=== PATIENT | female | born 1995 | race Caucasian/White ===

== ENCOUNTER 2016-09-15 10:56 | Emergency (ER) | payer SELFPAY ==
[2016-09-15] MEDS ORDERED: ONDANSETRON ODT 4 MG TAB PO STA (11:43)
[2016-09-15] MEDS ORDERED: ACETAMINOPHEN TAB 500 MG TAB PO STA (11:43)
--- NOTE | 2016-09-15 11:43 | ED ---
ENT HPI - General Chief complaint: ENT Stated complaint: sore throat, ear pain, nausea Time Seen by Provider: 09/15/16 11:33 Source: patient, RN notes reviewed Mode of arrival: ambulatory Limitations: no limitations - History of Present Illness Initial comments: 21-year-old female presents to the emergency department with a chief complaint of bilateral ear pain and throat pain and nausea. Patient's age 8 sick for the past few days. Patient states that her boyfriend is also L as well as her daughter. She states that she has felt fever chills. Patient states she is recommended a jail and illnesses have been going around. Patient denies any diarrhea with this. Patient has a abdominal pain. Patient denies any neck pain. Patient states that she just feels ill so she thought that she should be seen. Patient states that she was eating and drinking okay. Patient denies any changes in urination. Patient denies cough. Patient denies any recent shortness of breath, chest pain, back pain, abdominal pain, vomiting, numbness or tingling, dysuria or hematuria, constipation or diarrhea, headaches or visual changes, or any other current symptoms. - Related Data Home Medications Medication Instructions Recorded Confirmed No Known Home Medications [No 03/21/16 09/15/16 Known Home Medications] Allergies Allergy/AdvReac Type Severity Reaction Status Date / Time hydromorphone HCl AdvReac Nausea & Verified 09/15/16 12:37 [From Dilaudid] Vomiting Review of Systems ROS Statement: Those systems with pertinent positive or pertinent negative responses have been documented in the HPI. ROS Other: All systems not noted in ROS Statement are negative. Past Medical History Past Medical History: No Reported History History of Any Multi-Drug Resistant Organisms: None Reported Past Surgical History: No Surgical Hx Reported Past Psychological History: No Psychological Hx Reported Smoking Status: Former smoker Past Alcohol Use History: None Reported Past Drug Use History: None Reported General Exam - General Exam Comments Initial Comments: General exam: Alert, active, comfortable in no apparent distress Head: Normocephalic Eyes: Normal reaction of pupils, equal size, normal range of extraocular motion Ears: normal external ear canals, pink tympanic membranes with normal cone of light Nose: clear with pink turbinates Throat: Erythema, no exudates with normal sized tonsils Neck: no masses, no nuchal rigidity Chest: no chest wall deformity Lungs: equal air entry with no crackles or wheeze CVS: S1 and S2 normal with no audible mumurs, regular rhythm Abdomen: no hepatosplenomegaly, normal bowel sounds, no guarding or rigidity Spine: no scoliosis or deformity Skin: no rashes Neurological: No focal deficits, tone is normal in all 4 extremities Limitations: no limitations Course Vital Signs 09/15/16 11:27 Temperature 97.9 F Pulse Rate 91 Respiratory 19 Rate Blood Pressure 116/69 O2 Sat by Pulse 97 Oximetry Medical Decision Making - Medical Decision Making 21-year-old female presents with history of fever or sore throat. This and the patient is negative for strep throat as well as influenza. Patient appears to be suffering from pharyngitis. We discussed with the present for and for her nausea. We discussed Motrin Tylenol for fever control. We discussed return parameters and follow-up. Patient stated that she understood all the questions have been answered. She will be discharged. - Lab Data Lab Results 09/15/16 09/15/16 Range/Units 11:55 11:55 Influenza Type A RNA Not Detected (Not Detectd) Influenza Type B (PCR) Not Detected (Not Detectd) Group A Strep Rapid Negative (Negative) Disposition Clinical Impression: Acute viral pharyngitis Disposition: HOME SELF-CARE Condition: Stable Instructions: Pharyngitis (ED) Additional Instructions: Please use medication as discussed. Please follow up with family doctor if symptoms have not improved over the next two days. Please return to the emergency room if your symptoms increase or worsen or for any other concerns. Referrals: Silvia Bhat III, MD [Primary Care Provider] - 1-2 days Time of Disposition: 13:08
[2016-09-15 13:18] VITALS: BP 121/72; PULSE 79; RESP 16; TEMP 98
== END 2016-09-15 13:17 | disposition home or self-care (01) ==
LOC: EC 10:56
DX: J02.8 Acute pharyngitis due to other specified organisms (principal); R11.0 Nausea; Z87.891 Personal history of nicotine dependence
CPT/HCPCS: 87081; 87430; 87502; 99283

== ENCOUNTER 2016-09-16 05:11 | Emergency (ER) | payer SELFPAY ==
[2016-09-16 05:30] VITALS: BP 110/55; PULSE 99; RESP 20; TEMP 100.8
[2016-09-16] MEDS ORDERED: ONDANSETRON ODT 4 MG TAB PO STA (05:42)
--- NOTE | 2016-09-16 06:14 | ED ---
Nausea/Vomiting/Diarrhea HPI - General Chief complaint: Nausea/Vomiting/Diarrhea Stated complaint: NVD Time Seen by Provider: 09/16/16 05:33 Source: patient, family, RN notes reviewed, old records reviewed Mode of arrival: ambulatory Limitations: no limitations - History of Present Illness Initial comments: This is a 21-year-old female who was seen earlier yesterday and diagnosed with viral infection is back today with complaints of nausea no vomiting however she did have a sore throat and fever everything apparently came back negative she is complaining nausea she was given Zofran when she was in the hospital earlier was not sent home with a prescription she has no other complaints at this time the lightheadedness and dizziness. MD complaint: nausea, vomiting, diarrhea - Related Data Previous Rx's Medication Instructions Recorded Ondansetron Odt [Zofran Odt] 4 mg PO Q8HR PRN #10 tab 09/16/16 Allergies Allergy/AdvReac Type Severity Reaction Status Date / Time hydromorphone HCl AdvReac Nausea & Verified 09/16/16 05:29 [From Dilaudid] Vomiting Review of Systems ROS Statement: Those systems with pertinent positive or pertinent negative responses have been documented in the HPI. ROS Other: All systems not noted in ROS Statement are negative. Past Medical History Past Medical History: No Reported History History of Any Multi-Drug Resistant Organisms: None Reported Past Surgical History: No Surgical Hx Reported Past Psychological History: No Psychological Hx Reported Smoking Status: Former smoker Past Alcohol Use History: None Reported Past Drug Use History: None Reported General Exam - General Exam Comments Initial Comments: This is a well-developed well-nourished awake alert oriented [id number] Limitations: no limitations General appearance: alert, in no apparent distress Head exam: Present: atraumatic, normocephalic, normal inspection Eye exam: Present: normal appearance, PERRL, EOMI. Absent: scleral icterus, conjunctival injection, periorbital swelling ENT exam: Present: mucous membranes moist, other Neck exam: Present: normal inspection. Absent: tenderness, meningismus, lymphadenopathy Respiratory exam: Present: normal lung sounds bilaterally. Absent: respiratory distress, wheezes, rales, rhonchi, stridor Cardiovascular Exam: Present: regular rate, normal rhythm, normal heart sounds. Absent: systolic murmur, diastolic murmur, rubs, gallop, clicks GI/Abdominal exam: Present: soft, normal bowel sounds. Absent: distended, tenderness, guarding, rebound, rigid Extremities exam: Present: normal inspection, full ROM, normal capillary refill. Absent: tenderness, pedal edema, joint swelling, calf tenderness Back exam: Present: normal inspection Neurological exam: Present: alert, oriented X3, CN II-XII intact Psychiatric exam: Present: normal affect, normal mood Skin exam: Present: warm, dry, intact, normal color. Absent: rash Course Vital Signs 09/16/16 05:27 Temperature 100.8 F H Pulse Rate 99 Respiratory 20 Rate Blood Pressure 110/55 O2 Sat by Pulse 97 Oximetry Medical Decision Making - Medical Decision Making Hemoccult there but also think really patient is so much improved after Zofran. She will be discharged home with a prescription for this Disposition Clinical Impression: Viral syndrome, Nausea, Febrile illness Disposition: HOME SELF-CARE Condition: Good Instructions: Acute Nausea and Vomiting (ED), Cold Symptoms (ED), Viral Syndrome (ED) Prescriptions: Ondansetron Odt [Zofran Odt] 4 mg PO Q8HR PRN #10 tab PRN Reason: Nausea
== END 2016-09-16 06:35 | disposition home or self-care (01) ==
LOC: EC 05:11
DX: B34.9 Viral infection, unspecified (principal); Z87.891 Personal history of nicotine dependence; Z88.5 Allergy status to narcotic agent
CPT/HCPCS: 99283

== ENCOUNTER 2018-07-21 10:36 | Emergency (ER) | payer OTHER ==
[2018-07-21 10:42] VITALS: TEMP 98.7
[2018-07-21] MEDS ORDERED: IPRATROPIUM-ALBUTEROL 3 ML NEB INHALATION STA (11:12)
--- NOTE | 2018-07-21 11:39 | XR ---
EXAMINATION TYPE: XR chest 2V DATE OF EXAM: 07/21/2018 COMPARISON: Chest x-ray October 15, 2011. HISTORY: Cough and congestion for one week. TECHNIQUE: Frontal and lateral views of the chest are obtained. FINDINGS: There is no focal air space opacity, pleural effusion, or pneumothorax seen. The cardiac silhouette size is within normal limits. The osseous structures are intact. IMPRESSION: No suspicious acute pulmonary process.
--- NOTE | 2018-07-21 12:05 | ED ---
URI HPI - General Chief Complaint: Upper Respiratory Infection Stated Complaint: Cough/nausea Time Seen by Provider: 07/21/18 10:59 Source: patient, RN notes reviewed Mode of arrival: ambulatory Limitations: no limitations - History of Present Illness Initial Comments: 23-year-old female presents emergency Department chief complaint of cough congestion times one week. Patient states she has noticed wheezing and productive cough. She states it initially just started with a slight dry cough and nasal congestion. Patient states that she's had some [id number] medications no relief. Patient is a daily smoker no history of asthma or COPD. Patient reports no fever, chills, night sweats. Denies ear pain or sore throat. - Related Data Previous Rx's Medication Instructions Recorded Albuterol Sulfate [Proair Hfa] 1 - 2 puff INHALATION Q4HR PRN #1 07/21/18 inhaler Azithromycin [Zithromax Z-pack] 0 mg PO DIRECTED #1 pack 07/21/18 predniSONE 50 mg PO DAILY #5 tab 07/21/18 Allergies Allergy/AdvReac Type Severity Reaction Status Date / Time hydromorphone HCl AdvReac Nausea & Verified 07/21/18 11:04 [From Dilaudid] Vomiting Review of Systems ROS Statement: Those systems with pertinent positive or pertinent negative responses have been documented in the HPI. ROS Other: All systems not noted in ROS Statement are negative. Past Medical History Past Medical History: No Reported History History of Any Multi-Drug Resistant Organisms: None Reported Past Surgical History: No Surgical Hx Reported Past Psychological History: No Psychological Hx Reported Smoking Status: Current every day smoker Past Alcohol Use History: None Reported Past Drug Use History: None Reported General Exam Limitations: no limitations General appearance: alert, in no apparent distress Head exam: Present: atraumatic, normocephalic, normal inspection Eye exam: Present: normal appearance, PERRL, EOMI. Absent: scleral icterus, conjunctival injection, periorbital swelling ENT exam: Present: normal exam, normal oropharynx, mucous membranes moist, TM's normal bilaterally Neck exam: Present: normal inspection, full ROM. Absent: tenderness, meningismus, lymphadenopathy Respiratory exam: Present: wheezes. Absent: normal lung sounds bilaterally, respiratory distress, rales, rhonchi, stridor Cardiovascular Exam: Present: regular rate, normal rhythm, normal heart sounds. Absent: systolic murmur, diastolic murmur, rubs, gallop, clicks Neurological exam: Present: alert, oriented X3, CN II-XII intact Course Vital Signs 07/21/18 07/21/18 07/21/18 10:40 11:31 11:39 Temperature 98.7 F Pulse Rate 96 92 92 Respiratory 18 Rate Blood Pressure 119/79 O2 Sat by Pulse 97 Oximetry Medical Decision Making - Medical Decision Making 23-year-old female presented for URI symptoms. Chest x-ray was obtained shows no evidence of pneumonia or pneumothorax. Patient was given a DuoNeb treatment which has improved her symptoms. Patient we discharged with azithromycin, prednisone, Proventil inhaler. Return parameters were discussed. We did discuss smoking cessation greater than 3 minutes Disposition Clinical Impression: Acute bronchitis with bronchospasm Disposition: HOME SELF-CARE Condition: Stable Instructions: Upper Respiratory Infection (ED) Additional Instructions: Please return to the Emergency Department if symptoms worsen or any other concerns. Prescriptions: Albuterol Sulfate [Proair Hfa] 1 - 2 puff INHALATION Q4HR PRN #1 inhaler PRN Reason: difficulty in breathing Azithromycin [Zithromax Z-pack] 0 mg PO DIRECTED #1 pack predniSONE 50 mg PO DAILY #5 tab Is patient prescribed a controlled substance at d/c from ED?: No Referrals: Silvia Bhat III, MD [Primary Care Provider] - 1-2 days Time of Disposition: 12:05
[2018-07-21 12:54] VITALS: RESP 22
[2018-07-21 13:02] VITALS: BP 111/73; PULSE 94
== END 2018-07-21 13:02 | disposition home or self-care (01) ==
LOC: EC 10:36
DX: J20.9 Acute bronchitis, unspecified (principal); F17.200 Nicotine dependence, unspecified, uncomplicated; Z88.5 Allergy status to narcotic agent
CPT/HCPCS: 71046; 94640; 99283

== ENCOUNTER 2018-11-17 16:25 | Emergency (ER) | payer OTHER ==
[2018-11-17] MEDS ORDERED: ONDANSETRON ODT 4 MG TAB PO STA (16:57)
[2018-11-17 17:09] LABS: Appearance,Urine Clear (Clear); Bilirubin,Urine Negative (Negative); Blood,Urine Negative (Negative); Color,Urine Yellow; Glucose,Urine (UA) Negative (Negative); Ketones,Urine Negative (Negative); Leukocyte Esterase,Urine Negative (Negative); Nitrite,Urine Negative (Negative); Protein,Urine Negative (Negative); Urobilinogen,Urine <2.0 mg/dL (<2.0)
--- NOTE | 2018-11-17 17:14 | ED ---
General Adult HPI - General Chief complaint: Nausea/Vomiting/Diarrhea Stated complaint: Vomiting Time Seen by Provider: 11/17/18 16:35 Source: patient Limitations: no limitations - History of Present Illness Initial comments: 23-year-old female without any significant past medical history presents to the emergency department for multiple complaints. Patient states she has not been feeling well since yesterday. States she has had body aches with a headache and a cough. Patient states she is coughing up clear sputum. Patient does admit to smoking. Patient also has been vomiting. She has vomited about 5 times in the past day. Patient denies any abdominal pain or diarrhea. Patient has no other complaints at this time including shortness of breath, chest pain, abdominal pain, or visual changes. - Related Data Previous Rx's Medication Instructions Recorded Ondansetron [Zofran ODT] 4 mg PO Q8HR PRN #15 tab 11/17/18 Allergies Allergy/AdvReac Type Severity Reaction Status Date / Time hydromorphone HCl AdvReac Nausea & Verified 11/17/18 16:57 [From Dilaudid] Vomiting Review of Systems ROS Statement: Those systems with pertinent positive or pertinent negative responses have been documented in the HPI. ROS Other: All systems not noted in ROS Statement are negative. Past Medical History Past Medical History: No Reported History History of Any Multi-Drug Resistant Organisms: None Reported Past Surgical History: No Surgical Hx Reported Past Psychological History: No Psychological Hx Reported Smoking Status: Current every day smoker Past Alcohol Use History: None Reported Past Drug Use History: None Reported General Exam Limitations: no limitations General appearance: alert, in no apparent distress Head exam: Present: atraumatic, normocephalic, normal inspection Eye exam: Present: normal appearance, PERRL, EOMI. Absent: scleral icterus, conjunctival injection, periorbital swelling ENT exam: Present: normal exam, normal oropharynx, mucous membranes moist, TM's normal bilaterally, normal external ear exam Neck exam: Present: normal inspection, full ROM. Absent: tenderness, meningismus, lymphadenopathy Respiratory exam: Present: normal lung sounds bilaterally. Absent: respiratory distress, wheezes, rales, rhonchi, stridor Cardiovascular Exam: Present: regular rate, normal rhythm, normal heart sounds. Absent: systolic murmur, diastolic murmur, rubs, gallop, clicks Neurological exam: Present: alert, oriented X3, CN II-XII intact, other (GCS 15) Psychiatric exam: Present: normal affect, normal mood Skin exam: Present: warm, dry, intact, normal color. Absent: rash Course Vital Signs 11/17/18 16:39 Temperature 97.7 F Pulse Rate 81 Respiratory 16 Rate Blood Pressure 103/69 O2 Sat by Pulse 99 Oximetry - Reevaluation(s) Reevaluation #1: 11/17/18 17:13 Discussed greater than 3 minutes of smoking cessation with patient Reevaluation #2: 11/17/18 18:01 On reevaluation patient is complaining of some chest pain when coughing. Denies any SOB. Patient does have notable chest wall tenderness, likely from coughing.However EKG was obtained. EKG Findings - EKG Comments: EKG Findings:: Normal sinus rhythm, ventricular rate 67, DC interval 134, QTC 420, no evidence of ST elevation or depression. Medical Decision Making - Medical Decision Making 23-year-old female without any significant past medical history presents to the emergency department for multiple complaints. Has not been feeling well since yesterday. Has had bodyaches with a cough and a headache. Unsure if she has had fevers but she has felt hot and cold. Patient states she is coughing up clear sputum. Patient is a smoker. She is also been vomiting for the past 24 hours, about 5 times. No abdominal pain or diarrhea. On exam lungs are clear to auscultation bilaterally, no wheezing present. Patient is well appearing. Sitting up answering questions without any difficulty. Does not appear dehydrated, mucous members are moist. Urine is negative, hCG is negative which was ordered due to vomiting. Influenza also negative. Chest x-ray shows no acute process. Vitals are stable. As I was about to discharge patient is also complaining of some chest pain only when coughing, denying any shortness of breath. Therefore I did do an EKG which did not show any acute abnormalities. Pain is reproducible to palpation, likely costochondritis from coughing. At this time symptoms are likely secondary to a viral illness. Patient's daughter was sick the past 5 days. Patient will follow up with primary care in 1-2 days. She'll be given Zofran for nausea as it did help her here and she was able to keep down a glass of juice. She will return here she has any worsening symp toms. - Lab Data Lab Results 11/17/18 11/17/18 11/17/18 Range/Units 16:53 17:00 17:00 Urine Color Yellow Urine Appearance Clear (Clear) Urine pH 7.0 (5.0-8.0) Ur Specific [place] 1.020 (1.001-1.035) Urine Protein Negative (Negative) Urine Glucose (UA) Negative (Negative) Urine Ketones Negative (Negative) Urine Blood Negative (Negative) Urine Nitrite Negative (Negative) Urine Bilirubin Negative (Negative) Urine Urobilinogen <2.0 (<2.0) mg/dL Ur Leukocyte Esterase Negative (Negative) Urine HCG, Qual Not Detected (Not Detectd) Influenza Type A RNA Not Detected (Not Detectd) Influenza Type B (PCR) Not Detected (Not Detectd) Disposition Clinical Impression: Cough Disposition: HOME SELF-CARE Condition: Good Instructions (If sedation given, give patient instructions): Acute Cough (ED) Additional Instructions: Please take Motrin and Tylenol for any pain or fevers. Take Zofran for nausea. Please follow-up with primary care in 1-2 days. Return here to the emergency department if you have any worsening symptoms. Prescriptions: Ondansetron [Zofran ODT] 4 mg PO Q8HR PRN #15 tab PRN Reason: Nausea Is patient prescribed a controlled substance at d/c from ED?: No Referrals: Cory Morris Jr, DO [Primary Care Provider] - 1-2 days Time of Disposition: 18:02
--- NOTE | 2018-11-17 17:51 | XR ---
EXAMINATION: XR chest 2V DATE AND TIME: 11/17/2018 5:17 PM CLINICAL INDICATION: PHH; Pain TECHNIQUE: Departmental protocol COMPARISON: 07/21/2018 FINDINGS: The lungs are clear. The pleural spaces are negative. The cardiac silhouette is not enlarged. The remainder of the mediastinal silhouette is unremarkable. The skeletal structures and soft tissues are negative for acute findings. IMPRESSION: NO ACUTE PROCESS.
[2018-11-17 19:07] VITALS: BP 104/63; PULSE 71; RESP 18; TEMP 98.3
== END 2018-11-17 19:06 | disposition home or self-care (01) ==
LOC: EC 16:25
DX: R05 Cough (principal); R11.10 Vomiting, unspecified; R07.9 Chest pain, unspecified; F17.200 Nicotine dependence, unspecified, uncomplicated; Z88.5 Allergy status to narcotic agent
CPT/HCPCS: 71046; 81003; 81025; 87502; 93005; 99284

== ENCOUNTER 2019-02-26 14:28 | Emergency (ER) | payer OTHER ==
[2019-02-26 14:38] VITALS: BP 95/67; PULSE 86; RESP 18; TEMP 97.9
[2019-02-26] MEDS ORDERED: SODIUM CHLORIDE 0.9% 1,000 ML IV STA ×2 (15:41)
[2019-02-26 15:53] LABS: Basophils % (A) 1 %; Eosinophils # (A) 0.1 k/uL (0-0.7); Eosinophils % (A) 2 %; HCT 40.7 % (34.0-46.0); HGB 13.5 gm/dL (11.4-16.0); Lymphocytes % (A) 25 %; MCH 29.7 pg (25.0-35.0); MCHC 33.3 g/dL (31.0-37.0); MCV 89.3 fL (80.0-100.0); Mean Platelet Volume 7.2; Monocytes # (A) 0.2 k/uL (0-1.0); Monocytes % (A) 6 %; Neutrophils # (A) 2.5 k/uL (1.3-7.7); Neutrophils % (A) 64 %; Platelet Count 218 k/uL (150-450); RBC 4.55 m/uL (3.80-5.40); RDW 12.6 % (11.5-15.5); WBC 3.9 k/uL (3.8-10.6)
[2019-02-26 15:56] LABS: Appearance,Urine Cloudy (Clear); Bilirubin,Urine Negative (Negative); Blood,Urine Moderate (Negative); Color,Urine Yellow; Glucose,Urine (UA) Negative (Negative); Ketones,Urine Negative (Negative); Leukocyte Esterase,Urine Large (Negative); Mucus,Urine Moderate /hpf; Nitrite,Urine Negative (Negative); Protein,Urine 1+ (Negative); RBC,Urine 5 /hpf (0-5); Specific Gravity,Urine 1.019 (1.001-1.035); Squamous Epithelial Cell,Urine 38 /hpf (0-4); WBC,Urine 97 /hpf (0-5)
[2019-02-26 16:02] LABS: ALT <6 U/L (9-52); AST 16 U/L (14-36); African American GFR (CKD) >90 (>60 ml/min/1.73 sqM); Albumin 4.6 g/dL (3.5-5.0); Alkaline Phosphatase 47 U/L (38-126); Amylase 41 U/L (30-110); Anion Gap 10 mmol/L; Blood Urea Nitrogen 10 mg/dL (7-17); Calcium 8.9 mg/dL (8.4-10.2); Carbon Dioxide 25 mmol/L (22-30); Chloride 105 mmol/L (98-107); Glucose 96 mg/dL (74-99); Potassium 3.7 mmol/L (3.5-5.1); Sodium 140 mmol/L (137-145); Total Bilirubin 0.4 mg/dL (0.2-1.3); Total Protein 7.5 g/dL (6.3-8.2)
[2019-02-26] MEDS ORDERED: cefTRIAXone IN SWFI 1,000 MG/10 ML SYRINGE IVP STA (16:18)
--- NOTE | 2019-02-26 16:22 | XR ---
EXAMINATION TYPE: XR chest 2V DATE OF EXAM: 02/26/2019 COMPARISON: NONE HISTORY: Chest pain TECHNIQUE: Frontal and lateral views of the chest are obtained. FINDINGS: There is no focal air space opacity. No evidence for pneumothorax. No pleural effusion. The cardiac silhouette size is within normal limits. The osseous structures are grossly intact. IMPRESSION: 1. No acute cardiopulmonary process.
--- NOTE | 2019-02-26 16:44 | ED ---
Nausea/Vomiting/Diarrhea HPI - General Chief complaint: Nausea/Vomiting/Diarrhea Stated complaint: Tailbone pain, NVD Time Seen by Provider: 02/26/19 14:49 Source: patient, RN notes reviewed, old records reviewed Mode of arrival: ambulatory Limitations: no limitations - History of Present Illness Initial comments: Patient is a 23 year old female with lower back pain, nausea and vomiting for one day. She reports no changes in stools or diarrhea. She states there is no sweliling or fall or trauma to tailbone. - Related Data Home Medications Medication Instructions Recorded Confirmed Acetaminophen [Tylenol] 650 mg PO Q8H PRN 02/26/19 02/26/19 Previous Rx's Medication Instructions Recorded Ibuprofen [Motrin] 600 mg PO Q6HR PRN #20 tab 02/26/19 Nitrofurantoin Monohyd/M-Cryst 100 mg PO Q12HR #10 cap 02/26/19 [Macrobid] Ondansetron [Zofran] 4 mg PO Q8HR PRN #15 tab 02/26/19 Allergies Allergy/AdvReac Type Severity Reaction Status Date / Time hydromorphone HCl AdvReac Nausea & Verified 02/26/19 15:04 [From Dilaudid] Vomiting Review of Systems ROS Statement: Those systems with pertinent positive or pertinent negative responses have been documented in the HPI. ROS Other: All systems not noted in ROS Statement are negative. Past Medical History Past Medical History: No Reported History History of Any Multi-Drug Resistant Organisms: None Reported Past Surgical History: No Surgical Hx Reported Past Psychological History: No Psychological Hx Reported Smoking Status: Current every day smoker Past Alcohol Use History: None Reported Past Drug Use History: None Reported General Exam - General Exam Comments Initial Comments: Well appearing 23year old female, no distress. Limitations: no limitations General appearance: alert, in no apparent distress Head exam: Present: atraumatic, normocephalic, normal inspection Eye exam: Present: normal appearance, PERRL, EOMI. Absent: scleral icterus, conjunctival injection, periorbital swelling ENT exam: Present: normal exam, mucous membranes moist Neck exam: Present: normal inspection. Absent: tenderness, meningismus, lymphadenopathy Respiratory exam: Present: normal lung sounds bilaterally. Absent: respiratory distress, wheezes, rales, rhonchi, stridor Cardiovascular Exam: Present: regular rate, normal rhythm, normal heart sounds. Absent: systolic murmur, diastolic murmur, rubs, gallop, clicks GI/Abdominal exam: Present: soft, normal bowel sounds. Absent: distended, tenderness, guarding, rebound, rigid Extremities exam: Present: normal inspection, full ROM, normal capillary refill, other (tailbone tenderness). Absent: tenderness, pedal edema, joint swelling, calf tenderness Neurological exam: Present: alert, oriented X3, CN II-XII intact Psychiatric exam: Present: normal affect, normal mood Skin exam: Present: warm, dry, intact, normal color. Absent: rash Course Vital Signs 02/26/19 14:35 Temperature 97.9 F Pulse Rate 86 Respiratory 18 Rate Blood Pressure 95/67 O2 Sat by Pulse 97 Oximetry Medical Decision Making - Medical Decision Making Patient is a 23 year old female with nausea, lower back pain. Labs show patient has UTI, started on antibiotics. CXR is normal. Patients CBC and CMP are normal. Discused close PCP follow up. - Lab Data Result diagrams: 02/26/19 15:38 02/26/19 15:38 Lab Results 02/26/19 02/26/19 02/26/19 Range/Units 15:38 15:38 15:38 WBC 3.9 (3.8-10.6) k/uL RBC 4.55 (3.80-5.40) m/uL Hgb 13.5 (11.4-16.0) gm/dL Hct 40.7 (34.0-46.0) % MCV 89.3 (80.0-100.0) fL MCH 29.7 (25.0-35.0) pg MCHC 33.3 (31.0-37.0) g/dL RDW 12.6 (11.5-15.5) % Plt Count 218 (150-450) k/uL Neutrophils % 64 % Lymphocytes % 25 % Monocytes % 6 % Eosinophils % 2 % Basophils % 1 % Neutrophils # 2.5 (1.3-7.7) k/uL Lymphocytes # 1.0 (1.0-4.8) k/uL Monocytes # 0.2 (0-1.0) k/uL Eosinophils # 0.1 (0-0.7) k/uL Basophils # 0.0 (0-0.2) k/uL Sodium 140 (137-145) mmol/L Potassium 3.7 (3.5-5.1) mmol/L Chloride 105 (98-107) mmol/L Carbon Dioxide 25 (22-30) mmol/L Anion Gap 10 mmol/L BUN 10 (7-17) mg/dL Creatinine 0.55 (0.52-1.04) mg/dL Est GFR (CKD-EPI)AfAm >90 (>60 ml/min/1.73 sqM) Est GFR (CKD-EPI)NonAf >90 (>60 ml/min/1.73 sqM) Glucose 96 (74-99) mg/dL Calcium 8.9 (8.4-10.2) mg/dL Total Bilirubin 0.4 (0.2-1.3) mg/dL AST 16 (14-36) U/L ALT <6 L (9-52) U/L Alkaline Phosphatase 47 (38-126) U/L Total Protein 7.5 (6.3-8.2) g/dL Albumin 4.6 (3.5-5.0) g/dL Amylase 41 (30-110) U/L Lipase 60 (23-300) U/L Urine Color Yellow Urine Appearance Cloudy H (Clear) Urine pH 6.0 (5.0-8.0) Ur Specific [place] 1.019 (1.001-1.035) Urine Protein 1+ H (Negative) Urine Glucose (UA) Negative (Negative) Urine Ketones Negative (Negative) Urine Blood Moderate H (Negative) Urine Nitrite Negative (Negative) Urine Bilirubin Negative (Negative) Urine Urobilinogen 3.0 (<2.0) mg/dL Ur Leukocyte Esterase Large H (Negative) Urine RBC 5 (0-5) /hpf Urine WBC 97 H (0-5) /hpf Ur Squamous Epith Cells 38 H (0-4) /hpf Urine Mucus Moderate H (None) /hpf Urine HCG, Qual (Not Detectd) 02/26/19 Range/Units 15:38 WBC (3.8-10.6) k/uL RBC (3.80-5.40) m/uL Hgb (11.4-16.0) gm/dL Hct (34.0-46.0) % MCV (80.0-100.0) fL MCH (25.0-35.0) pg MCHC (31.0-37.0) g/dL RDW (11.5-15.5) % Plt Count (150-450) k/uL Neutrophils % % Lymphocytes % % Monocytes % % Eosinophils % % Basophils % % Neutrophils # (1.3-7.7) k/uL Lymphocytes # (1.0-4.8) k/uL Monocytes # (0-1.0) k/uL Eosinophils # (0-0.7) k/uL Basophils # (0-0.2) k/uL Sodium (137-145) mmol/L Potassium (3.5-5.1) mmol/L Chloride (98-107) mmol/L Carbon Dioxide (22-30) mmol/L Anion Gap mmol/L BUN (7-17) mg/dL Creatinine (0.52-1.04) mg/dL Est GFR (CKD-EPI)AfAm (>60 ml/min/1.73 sqM) Est GFR (CKD-EPI)NonAf (>60 ml/min/1.73 sqM) Glucose (74-99) mg/dL Calcium (8.4-10.2) mg/dL Total Bilirubin (0.2-1.3) mg/dL AST (14-36) U/L ALT (9-52) U/L Alkaline Phosphatase (38-126) U/L Total Protein (6.3-8.2) g/dL Albumin (3.5-5.0) g/dL Amylase (30-110) U/L Lipase (23-300) U/L Urine Color Urine Appearance (Clear) Urine pH (5.0-8.0) Ur Specific [place] (1.001-1.035) Urine Protein (Negative) Urine Glucose (UA) (Negative) Urine Ketones (Negative) Urine Blood (Negative) Urine Nitrite (Negative) Urine Bilirubin (Negative) Urine Urobilinogen (<2.0) mg/dL Ur Leukocyte Esterase (Negative) Urine RBC (0-5) /hpf Urine WBC (0-5) /hpf Ur Squamous Epith Cells (0-4) /hpf Urine Mucus (None) /hpf Urine HCG, Qual Not Detected (Not Detectd) Disposition Clinical Impression: UTI (urinary tract infection) Disposition: HOME SELF-CARE Condition: Good Instructions (If sedation given, give patient instructions): Urinary Tract Infection in Women (ED) Additional Instructions: Patient advised to follow up with PCP. Please use medication as discussed. Please follow up with family doctor if symptoms have not improved over the next two days. Please return to the emergency room if your symptoms increase or worsen or for any other concerns. Prescriptions: Nitrofurantoin Monohyd/M-Cryst [Macrobid] 100 mg PO Q12HR #10 cap Ibuprofen [Motrin] 600 mg PO Q6HR PRN #20 tab PRN Reason: Pain Ondansetron [Zofran] 4 mg PO Q8HR PRN #15 tab PRN Reason: Nausea Is patient prescribed a controlled substance at d/c from ED?: No Referrals: Cory Morris Jr, [Primary Care Provider] - 1-2 days Time of Disposition: 16:41
== END 2019-02-26 17:09 | disposition home or self-care (01) ==
LOC: EC 14:28
DX: N39.0 Urinary tract infection, site not specified (principal); M54.5 Low back pain; R11.2 Nausea with vomiting, unspecified; F17.200 Nicotine dependence, unspecified, uncomplicated; Z88.5 Allergy status to narcotic agent
CPT/HCPCS: 36415; 80053; 82150; 83690; 85025; 81001; 81025; 71046; 99284; 96374; 96361; J0696

== ENCOUNTER 2019-03-08 17:01 | Emergency (ER) | payer OTHER ==
[2019-03-08 17:23] VITALS: BP 103/68; PULSE 61; RESP 18; TEMP 98.2
[2019-03-08] MEDS ORDERED: KETOROLAC 30 MG/ML 1 ML VIAL IM STA (17:53)
--- NOTE | 2019-03-08 19:12 | XR ---
EXAMINATION TYPE: XR sacrum coccyx DATE OF EXAM: 03/08/2019 COMPARISON: NONE HISTORY: Pain TECHNIQUE: 3 views FINDINGS: Sacrum and coccyx segments have normal alignment. Sacroiliac joints appear normal. There is no sign of a fracture. IMPRESSION: Normal sacrum and coccyx exam.
[2019-03-08] MEDS ORDERED: LIDOCAINE 5% PATCH TOPICAL STA (19:22)
--- NOTE | 2019-03-08 19:22 | ED ---
Back Pain HPI - General Chief Complaint: Back Pain/Injury Stated Complaint: tailbone pain/swelling Time Seen by Provider: 03/08/19 17:36 Source: patient Limitations: no limitations - History of Present Illness Initial Comments: Patient is a 23-year-old female presenting to emergency Department with pain in the tailbone. Patient reports the pain started approximately 2 weeks ago after which she went to emergency department at [facility] and was discharged with pain control. Patient reports the pain is located near the tailbone and does not radiate anywhere. Patient denies any low back pain. Patient reports the pain does not radiate anywhere and denies any numbness or tingling. Patient denies any bowel symptoms, hematochezia, melena. Patient reports the pain is exacerbated when sitting and alleviated whenever pressure is taken off of it. Patient denies any trauma to the area. Patient denies a history of pilonidal cyst. - Related Data Home Medications Medication Instructions Recorded Confirmed Acetaminophen [Tylenol] 650 mg PO Q8H PRN 02/26/19 02/26/19 Previous Rx's Medication Instructions Recorded Ibuprofen [Motrin] 600 mg PO Q6HR PRN #20 tab 02/26/19 Nitrofurantoin Monohyd/M-Cryst 100 mg PO Q12HR #10 cap 02/26/19 [Macrobid] Ondansetron [Zofran] 4 mg PO Q8HR PRN #15 tab 02/26/19 Allergies Allergy/AdvReac Type Severity Reaction Status Date / Time hydromorphone HCl AdvReac Nausea & Verified 02/26/19 15:04 [From Dilaudid] Vomiting Review of Systems ROS Statement: Those systems with pertinent positive or pertinent negative responses have been documented in the HPI. ROS Other: All systems not noted in ROS Statement are negative. Past Medical History Past Medical History: No Reported History History of Any Multi-Drug Resistant Organisms: None Reported Past Surgical History: No Surgical Hx Reported Past Psychological History: No Psychological Hx Reported Smoking Status: Current every day smoker Past Alcohol Use History: None Reported Past Drug Use History: None Reported General Exam - General Exam Comments Initial Comments: General: Well-developed well-nourished distress HEENT: Normocephalic/atraumatic, PERLL, pharynx erythema, swallowing well, EAC no erythema, no exudates, TM clear, no cervical lymph nodes Neck: Supple, nontender, trachea midline Chest/Lungs: Normal respirations, no signs of respiratory distress clear to auscultation bilaterally no wheezes, rales, rhonchi Cardiac: Regular rate and rhythm, normal S1-S2, no murmurs rubs or gallops Abdomen/GI: Soft nontender, bowel sounds equal or quadrant x4, no guarding, no rebound no CVA tenderness Back: Coccygeal tenderness on palpation, no lumbosacral tenderness, no vertebral tenderness, no paraspinal tenderness, no pilonidal cyst noted, normal inspection of the coccygeal region Musculoskeletal: Nontender, full range of motion, no edema, strength equal bilaterally Skin: Warmth, no rashes or lesions, no cyanosis or diaphoresis Neurologic: AAO x 3, CN 2-12 intact, Psychiatric: Mood and affect normal, judgment normal Limitations: no limitations Course Vital Signs 03/08/19 03/08/19 17:21 19:31 Temperature 98.2 F 98.2 F Pulse Rate 61 61 Respiratory 18 18 Rate Blood Pressure 103/68 103/68 O2 Sat by Pulse 99 99 Oximetry Medical Decision Making - Medical Decision Making Patient is a 23-year-old female presenting to emergency Department with pain at the tailbone. X-ray of the sacrum and coccyx is unremarkable. Patient advised to alternate between Tylenol and ibuprofen for pain control. Patient advised to use a donut cushion to help alleviate the pain. Patient given Toradol for pain control and a Lidoderm patch. Patient advised to follow-up with orthopedics for further management. Strict return parameters were thoroughly discussed the patient was understanding and agreeable. Case discussed with physician. Disposition Clinical Impression: Coccygeal pain Disposition: HOME SELF-CARE Condition: Stable Instructions (If sedation given, give patient instructions): Acute Low Back Pain (ED) Additional Instructions: Please follow with orthopedics. Please return to emergency department if symptoms worsen. Is patient prescribed a controlled substance at d/c from ED?: No Referrals: Cory Morris Jr, DO [Primary Care Provider] - 1-2 days Santosh Moran DO [Doctor of Osteopathic Medicine] - 1-2 days Time of Disposition: 19:22
== END 2019-03-08 19:41 | disposition home or self-care (01) ==
LOC: EC 17:01
DX: M53.3 Sacrococcygeal disorders, not elsewhere classified (principal); R22.2 Localized swelling, mass and lump, trunk; F17.200 Nicotine dependence, unspecified, uncomplicated; Z88.5 Allergy status to narcotic agent
CPT/HCPCS: 72220; 99283; 96372; J1885

== ENCOUNTER 2020-02-29 17:50 | Emergency (ER) | payer OTHER ==
[2020-02-29 18:32] LABS: Basophils % (A) 1 %; Eosinophils # (A) 0.1 k/uL (0-0.7); Eosinophils % (A) 2 %; HCT 37.4 % (34.0-46.0); Lymphocytes # (A) 1.6 k/uL (1.0-4.8); Lymphocytes % (A) 27 %; MCH 31.7 pg (25.0-35.0); MCHC 34.8 g/dL (31.0-37.0); MCV 91.2 fL (80.0-100.0); Mean Platelet Volume 8.7; Monocytes # (A) 0.3 k/uL (0-1.0); Monocytes % (A) 5 %; Neutrophils # (A) 3.8 k/uL (1.3-7.7); Neutrophils % (A) 63 %; Platelet Count 214 k/uL (150-450); RDW 12.3 % (11.5-15.5)
[2020-02-29 18:40] LABS: ALT 8 U/L (4-34); AST 19 U/L (14-36); African American GFR (CKD) >90 (>60 ml/min/1.73 sqM); Albumin 4.6 g/dL (3.5-5.0); Alkaline Phosphatase 47 U/L (38-126); Anion Gap 8 mmol/L; Appearance,Urine Clear (Clear); Bilirubin,Urine Negative (Negative); Blood Urea Nitrogen 13 mg/dL (7-17); Blood,Urine Negative (Negative); Calcium 9.1 mg/dL (8.4-10.2); Carbon Dioxide 24 mmol/L (22-30); Chloride 105 mmol/L (98-107); Color,Urine Light Yellow; Glucose 95 mg/dL (74-99); Glucose,Urine (UA) Negative (Negative); Ketones,Urine Negative (Negative); Leukocyte Esterase,Urine Negative (Negative); Nitrite,Urine Negative (Negative); Non-African American GFR(CKD) >90 (>60 ml/min/1.73 sqM); PH, Urine 6.5 (5.0-8.0); Protein,Urine Negative (Negative); Sodium 137 mmol/L (137-145); Specific Gravity,Urine 1.016 (1.001-1.035); Total Bilirubin 0.2 mg/dL (0.2-1.3); Total Protein 7.4 g/dL (6.3-8.2); Urobilinogen,Urine <2.0 mg/dL (<2.0)
--- NOTE | 2020-02-29 18:50 | ED ---
Female Urogenital HPI - General Chief complaint: Vaginal Bleeding Stated complaint: early preg/vag bleeding Time Seen by Provider: 02/29/20 17:55 Source: patient Mode of arrival: ambulatory Limitations: no limitations - History of Present Illness Initial comments: Patient is a 24-year-old female was sent to the emergency department with reported vaginal bleeding. Patient states that she took 3 test on Friday all which were positive. Today she began having vaginal bleeding approximately one hour prior to hospital arrival. States that she is having mild cramping. She did take a test at home and it was negative for . She denies heavy vaginal bleeding. No discharge. Denies dysuria, hematuria or voiding. No melenic stools or hematochezia. Denies lightheadedness or dizziness. Patient has 1 previous , 5 years ago. States she had no issues with this pertinency. No history of miscarriages. No other alleviating, precipitating or modifying factors - Related Data Home Medications Medication Instructions Recorded Confirmed No Known Home Medications 02/29/20 02/29/20 Allergies Allergy/AdvReac Type Severity Reaction Status Date / Time hydromorphone HCl AdvReac Nausea & Verified 02/29/20 18:50 [From Dilaudid] Vomiting Review of Systems ROS Statement: Those systems with pertinent positive or pertinent negative responses have been documented in the HPI. ROS Other: All systems not noted in ROS Statement are negative. Past Medical History Past Medical History: No Reported History History of Any Multi-Drug Resistant Organisms: None Reported Past Surgical History: No Surgical Hx Reported Past Psychological History: No Psychological Hx Reported Smoking Status: Former smoker Past Alcohol Use History: None Reported Past Drug Use History: None Reported General Exam Limitations: no limitations General appearance: alert, in no apparent distress Head exam: Present: atraumatic, normocephalic, normal inspection Eye exam: Present: normal appearance, PERRL, EOMI. Absent: scleral icterus, conjunctival injection, periorbital swelling ENT exam: Present: normal exam, mucous membranes moist Neck exam: Present: normal inspection. Absent: tenderness, meningismus, lymphadenopathy Respiratory exam: Present: normal lung sounds bilaterally. Absent: respiratory distress, wheezes, rales, rhonchi, stridor Cardiovascular Exam: Present: regular rate, normal rhythm, normal heart sounds. Absent: systolic murmur, diastolic murmur, rubs, gallop, clicks GI/Abdominal exam: Present: soft, normal bowel sounds. Absent: distended, tenderness, guarding, rebound, rigid Extremities exam: Present: normal inspection, full ROM, normal capillary refill. Absent: tenderness, pedal edema, joint swelling, calf tenderness Back exam: Present: normal inspection Neurological exam: Present: alert, oriented X3, CN II-XII intact Psychiatric exam: Present: normal affect, normal mood Skin exam: Present: warm, dry, intact, normal color. Absent: rash Course Vital Signs 02/29/20 02/29/20 17:53 19:20 Temperature 98.3 F 97.8 F Pulse Rate 73 68 Respiratory 18 16 Rate Blood Pressure 120/79 105/70 O2 Sat by Pulse 99 98 Oximetry Medical Decision Making - Medical Decision Making Upon arrival the patient's vitals are stable. Laboratory studies are conducted which demonstrate a hemoglobin of 13. Urinalysis is negative. HCG is less than 2.4. I discussed the results with the patient. I informed the patient that there is no evidence of at this time. She'll be discharged home and needs to follow-up with her primary care physician. Return to the emergency room for any new or worsening symptoms per patient was in agreement with the treatment plan she is discharged home in stable condition - Lab Data Result diagrams: 02/29/20 18:22 02/29/20 18:22 Lab Results 02/29/20 02/29/20 02/29/20 Range/Units 18:22 18:22 18:22 WBC 6.0 (3.8-10.6) k/uL RBC 4.10 (3.80-5.40) m/uL Hgb 13.0 (11.4-16.0) gm/dL Hct 37.4 (34.0-46.0) % MCV 91.2 (80.0-100.0) fL MCH 31.7 (25.0-35.0) pg MCHC 34.8 (31.0-37.0) g/dL RDW 12.3 (11.5-15.5) % Plt Count 214 (150-450) k/uL Neutrophils % 63 % Lymphocytes % 27 % Monocytes % 5 % Eosinophils % 2 % Basophils % 1 % Neutrophils # 3.8 (1.3-7.7) k/uL Lymphocytes # 1.6 (1.0-4.8) k/uL Monocytes # 0.3 (0-1.0) k/uL Eosinophils # 0.1 (0-0.7) k/uL Basophils # 0.0 (0-0.2) k/uL Sodium 137 (137-145) mmol/L Potassium 4.0 (3.5-5.1) mmol/L Chloride 105 (98-107) mmol/L Carbon Dioxide 24 (22-30) mmol/L Anion Gap 8 mmol/L BUN 13 (7-17) mg/dL Creatinine 0.59 (0.52-1.04) mg/dL Est GFR (CKD-EPI)AfAm >90 (>60 ml/min/1.73 sqM) Est GFR (CKD-EPI)NonAf >90 (>60 ml/min/1.73 sqM) Glucose 95 (74-99) mg/dL Calcium 9.1 (8.4-10.2) mg/dL Total Bilirubin 0.2 (0.2-1.3) mg/dL AST 19 (14-36) U/L ALT 8 (4-34) U/L Alkaline Phosphatase 47 (38-126) U/L Total Protein 7.4 (6.3-8.2) g/dL Albumin 4.6 (3.5-5.0) g/dL HCG, Quant <2.4 mIU/mL Urine Color Urine Appearance (Clear) Urine pH (5.0-8.0) Ur Specific [place] (1.001-1.035) Urine Protein (Negative) Urine Glucose (UA) (Negative) Urine Ketones (Negative) Urine Blood (Negative) Urine Nitrite (Negative) Urine Bilirubin (Negative) Urine Urobilinogen (<2.0) mg/dL Ur Leukocyte Esterase (Negative) Blood Type O Positive Blood Type Recheck O Pos Bld Type Recheck Status No 02/29/20 Range/Units 18:22 WBC (3.8-10.6) k/uL RBC (3.80-5.40) m/uL Hgb (11.4-16.0) gm/dL Hct (34.0-46.0) % MCV (80.0-100.0) fL MCH (25.0-35.0) pg MCHC (31.0-37.0) g/dL RDW (11.5-15.5) % Plt Count (150-450) k/uL Neutrophils % % Lymphocytes % % Monocytes % % Eosinophils % % Basophils % % Neutrophils # (1.3-7.7) k/uL Lymphocytes # (1.0-4.8) k/uL Monocytes # (0-1.0) k/uL Eosinophils # (0-0.7) k/uL Basophils # (0-0.2) k/uL Sodium (137-145) mmol/L Potassium (3.5-5.1) mmol/L Chloride (98-107) mmol/L Carbon Dioxide (22-30) mmol/L Anion Gap mmol/L BUN (7-17) mg/dL Creatinine (0.52-1.04) mg/dL Est GFR (CKD-EPI)AfAm (>60 ml/min/1.73 sqM) Est GFR (CKD-EPI)NonAf (>60 ml/min/1.73 sqM) Glucose (74-99) mg/dL Calcium (8.4-10.2) mg/dL Total Bilirubin (0.2-1.3) mg/dL AST (14-36) U/L ALT (4-34) U/L Alkaline Phosphatase (38-126) U/L Total Protein (6.3-8.2) g/dL Albumin (3.5-5.0) g/dL HCG, Quant mIU/mL Urine Color Light Yellow Urine Appearance Clear (Clear) Urine pH 6.5 (5.0-8.0) Ur Specific [place] 1.016 (1.001-1.035) Urine Protein Negative (Negative) Urine Glucose (UA) Negative (Negative) Urine Ketones Negative (Negative) Urine Blood Negative (Negative) Urine Nitrite Negative (Negative) Urine Bilirubin Negative (Negative) Urine Urobilinogen <2.0 (<2.0) mg/dL Ur Leukocyte Esterase Negative (Negative) Blood Type Blood Type Recheck Bld Type Recheck Status Disposition Clinical Impression: Dysfunctional uterine bleeding Disposition: HOME SELF-CARE Condition: Stable Instructions (If sedation given, give patient instructions): Dysmenorrhea (ED) Additional Instructions: Please follow up with the primary care doctor. Return to the emergency room for any new or worsening symptoms Is patient prescribed a controlled substance at d/c from ED?: No Referrals: Cory Morris Jr, [Primary Care Provider] - 1-2 days Time of Disposition: 19:09
[2020-02-29 18:56] LABS: HCG,Quantitative Serum <2.4 mIU/mL
[2020-02-29 19:21] VITALS: BP 105/70; PULSE 68; RESP 16; TEMP 97.8
== END 2020-02-29 19:20 | disposition home or self-care (01) ==
LOC: EC 17:50
DX: N93.8 Other specified abnormal uterine and vaginal bleeding (principal); Z87.891 Personal history of nicotine dependence; Z88.5 Allergy status to narcotic agent
CPT/HCPCS: 36415; 80053; 81003; 84702; 85025; 86900; 86901; 99284

== ENCOUNTER 2020-04-04 09:02 | Emergency (ER) | payer OTHER ==
[2020-04-04 09:06] VITALS: BP 107/77; PULSE 81; RESP 18; TEMP 98.2
[2020-04-04] MEDS ORDERED: ACET/COD 300 MG/30 MG STARTER PACK 6 TAB BTL PO STA (09:13)
--- NOTE | 2020-04-04 09:14 | ED ---
General Adult HPI - General Chief complaint: Dental/Oral Stated complaint: facial swelling Time Seen by Provider: 04/04/20 09:07 Source: patient, RN notes reviewed Mode of arrival: ambulatory Limitations: no limitations - History of Present Illness Initial comments: 24-year-old female presents to the emergency room for left-sided facial swelling. Patient reports that left-sided upper dental pain started yesterday and then the swelling started today. Patient denies fevers or chills. Patient denies neck pain trismus. Denies any sublingual edema. Patient did try to call her dentist but cannot get in until next week.Patient has no other complaints at this time including shortness of breath, chest pain, abdominal pain, nausea or vomiting, headache, or visual changes. - Related Data Previous Rx's Medication Instructions Recorded Penicillin V Potassium [Pen Vee K] 500 mg PO Q6H 10 Days #40 tablet 04/04/20 Allergies Allergy/AdvReac Type Severity Reaction Status Date / Time hydromorphone HCl AdvReac Nausea & Verified 04/04/20 09:06 [From Dilaudid] Vomiting Review of Systems ROS Statement: Those systems with pertinent positive or pertinent negative responses have been documented in the HPI. ROS Other: All systems not noted in ROS Statement are negative. Past Medical History Past Medical History: No Reported History History of Any Multi-Drug Resistant Organisms: None Reported Past Surgical History: No Surgical Hx Reported Past Psychological History: No Psychological Hx Reported Smoking Status: Former smoker Past Alcohol Use History: None Reported Past Drug Use History: None Reported General Exam Limitations: no limitations General appearance: alert, in no apparent distress Head exam: Present: atraumatic, normocephalic, normal inspection Eye exam: Present: normal appearance, PERRL, EOMI. Absent: scleral icterus, conjunctival injection, periorbital swelling ENT exam: Present: normal exam, mucous membranes moist, TM's normal bilaterally, normal external ear exam. Absent: normal oropharynx (Patient has edema noted to the left axillary area. Patient does not have any abscesses noted of the left upper gumline.), other (No sublingual edema. No trismus.) Neck exam: Present: normal inspection, full ROM. Absent: tenderness, meningismus, lymphadenopathy Respiratory exam: Present: normal lung sounds bilaterally. Absent: respiratory distress, wheezes, rales, rhonchi, stridor Cardiovascular Exam: Present: regular rate, normal rhythm, normal heart sounds. Absent: systolic murmur, diastolic murmur, rubs, gallop, clicks GI/Abdominal exam: Present: soft, normal bowel sounds. Absent: distended, tenderness, guarding, rebound, rigid Neurological exam: Present: alert Course Vital Signs 04/04/20 09:03 Temperature 98.2 F Pulse Rate 81 Respiratory 18 Rate Blood Pressure 107/77 O2 Sat by Pulse 100 Oximetry Medical Decision Making - Medical Decision Making Patient presents for dental pain. She does have associated left-sided facial swelling. No abscess noted from direct visualization or palpation of the gumline. Patient was started on antibiotics. She was given Tylenol 3 for pain. Recommend she alternate this with Motrin and not drive while taking it. Patient will follow up with her doctor in one to 2 days. She'll return for any worsening symptoms. She will attend her dental appointment next week. Disposition Clinical Impression: Pain, dental Disposition: HOME SELF-CARE Condition: Good Instructions (If sedation given, give patient instructions): Toothache (ED) Additional Instructions: Please take antibiotic as directed. Alternate Motrin and Tylenol [address] or operate machinery while taking Tylenol 3. Apply ice to the left side of the face. Try to keep head elevated. Follow-up with your dentist at your appointment next week. Return to the emergency room if you have any worsening symptoms. As discussed, it may take up to 24 hours for antibiotics to start working. Prescriptions: Penicillin V Potassium [Pen Vee K] 500 mg PO Q6H 10 Days #40 tablet Is patient prescribed a controlled substance at d/c from ED?: No Referrals: Cory Morris Jr, DO [Primary Care Provider] - 1-2 days Time of Disposition: 09:13
== END 2020-04-04 09:28 | disposition home or self-care (01) ==
LOC: EC 09:02
DX: K08.89 Other specified disorders of teeth and supporting structures (principal); R22.0 Localized swelling, mass and lump, head; Z88.5 Allergy status to narcotic agent; Z87.891 Personal history of nicotine dependence
CPT/HCPCS: 99283

== ENCOUNTER 2020-04-06 12:11 | Emergency (ER) | payer OTHER ==
[2020-04-06 12:45] VITALS: TEMP 98.5
[2020-04-06] MEDS ORDERED: cefTRIAXone IN SWFI 1,000 MG/10 ML SYRINGE IVP STA (13:10)
[2020-04-06] MEDS ORDERED: HYDROcodone/APAP 5-325MG 1 EACH TAB PO STA (13:11)
[2020-04-06] MEDS ORDERED: SODIUM CHLORIDE 0.9% 1,000 ML IV ONE (13:11)
[2020-04-06 13:56] LABS: Basophils % (A) 0 %; Eosinophils # (A) 0.1 k/uL (0-0.7); Eosinophils % (A) 1 %; HCT 37.7 % (34.0-46.0); HGB 12.8 gm/dL (11.4-16.0); Lymphocytes # (A) 1.5 k/uL (1.0-4.8); Lymphocytes % (A) 15 %; MCH 30.3 pg (25.0-35.0); MCHC 33.9 g/dL (31.0-37.0); MCV 89.5 fL (80.0-100.0); Mean Platelet Volume 8.2; Monocytes # (A) 0.5 k/uL (0-1.0); Monocytes % (A) 5 %; Neutrophils # (A) 7.8 k/uL (1.3-7.7); Neutrophils % (A) 78 %; Platelet Count 222 k/uL (150-450); RBC 4.21 m/uL (3.80-5.40); RDW 12.1 % (11.5-15.5)
[2020-04-06 14:05] LABS: African American GFR (CKD) >90 (>60 ml/min/1.73 sqM); Anion Gap 8 mmol/L; Blood Urea Nitrogen 10 mg/dL (7-17); Calcium 9.2 mg/dL (8.4-10.2); Carbon Dioxide 26 mmol/L (22-30); Chloride 102 mmol/L (98-107); Glucose 90 mg/dL (74-99); Non-African American GFR(CKD) >90 (>60 ml/min/1.73 sqM); Potassium 4.1 mmol/L (3.5-5.1); Sodium 136 mmol/L (137-145)
--- NOTE | 2020-04-06 14:35 | ED ---
ENT HPI - General Chief complaint: Dental/Oral Stated complaint: Facial swelling Time Seen by Provider: 04/06/20 12:57 Source: patient, RN notes reviewed, old records reviewed Mode of arrival: ambulatory Limitations: no limitations - History of Present Illness Initial comments: said 24 rolled female process returns today with left-sided facial swe lling. She was seen for dental abscess 2 days ago. Pt started on PenVK and given pain medication but it has not helped. She reports worsening swelling to lower jaw and complains of trismus. Denies sore throat. - Related Data Home Medications Medication Instructions Recorded Confirmed Acetaminophen-Codeine 300-30mg 1 tab PO TID PRN 04/06/20 04/06/20 [Tylenol w/codeine #3] Previous Rx's Medication Instructions Recorded Penicillin V Potassium [Pen Vee K] 500 mg PO Q6H 10 Days #40 tablet 04/04/20 Clindamycin HCl 300 mg PO Q6H #40 cap 04/06/20 HYDROcodone/APAP 5-325MG [[place] 1 tab PO Q6HR PRN 3 Days #12 tab 04/06/20 5-325] Allergies Allergy/AdvReac Type Severity Reaction Status Date / Time hydromorphone HCl AdvReac Nausea & Verified 04/06/20 13:10 [From Dilaudid] Vomiting Review of Systems ROS Statement: Those systems with pertinent positive or pertinent negative responses have been documented in the HPI. ROS Other: All systems not noted in ROS Statement are negative. Past Medical History Past Medical History: No Reported History History of Any Multi-Drug Resistant Organisms: None Reported Past Surgical History: No Surgical Hx Reported Past Psychological History: No Psychological Hx Reported Smoking Status: Former smoker Past Alcohol Use History: None Reported Past Drug Use History: None Reported General Exam - General Exam Comments Initial Comments: 24 year old female, no distress. Limitations: no limitations General appearance: alert, in no apparent distress Head exam: Present: atraumatic, normocephalic, normal inspection Eye exam: Present: normal appearance, PERRL, EOMI. Absent: scleral icterus, conjunctival injection, periorbital swelling ENT exam: Present: normal exam, mucous membranes moist, other (left sided facial swelling, tenderness over submandibular and parotid area. No palpable intraoral abscess. ) Neck exam: Present: normal inspection. Absent: tenderness, meningismus, lymphadenopathy Respiratory exam: Present: normal lung sounds bilaterally. Absent: respiratory distress, wheezes, rales, rhonchi, stridor Cardiovascular Exam: Present: regular rate, normal rhythm, normal heart sounds. Absent: systolic murmur, diastolic murmur, rubs, gallop, clicks GI/Abdominal exam: Present: soft, normal bowel sounds. Absent: distended, tenderness, guarding, rebound, rigid Extremities exam: Present: normal inspection, full ROM, normal capillary refill. Absent: tenderness, pedal edema, joint swelling, calf tenderness Back exam: Present: normal inspection Neurological exam: Present: alert, oriented X3, CN II-XII intact Psychiatric exam: Present: normal affect, normal mood Course Vital Signs 04/06/20 04/06/20 12:43 16:00 Temperature 98.5 F Pulse Rate 86 82 Respiratory 16 18 Rate Blood Pressure 115/73 118/83 O2 Sat by Pulse 99 100 Oximetry Medical Decision Making - Medical Decision Making She 24 year old female with worseing left facial swelling, and has been on PEnVK for 2 days. She has no intraoral abscess and has some trismus. Pt at this time had CT scan and labs. Labs are unremarkable. CT show no focal drainable abscess but evidence of left sided facial swelling that is non specific. Feels improvement after receiving toradol, norco and rocephin. Pt evaluated by Dr. Sanon, and will start pt on Clindamycin. Discussed strict return parameters in 24 hours if worsening symptoms with new abx. - Lab Data Result diagrams: 04/06/20 13:24 04/06/20 13:24 Lab Results 04/06/20 04/06/20 Range/Units 13:24 13:24 WBC 10.0 (3.8-10.6) k/uL RBC 4.21 (3.80-5.40) m/uL Hgb 12.8 (11.4-16.0) gm/dL Hct 37.7 (34.0-46.0) % MCV 89.5 (80.0-100.0) fL MCH 30.3 (25.0-35.0) pg MCHC 33.9 (31.0-37.0) g/dL RDW 12.1 (11.5-15.5) % Plt Count 222 (150-450) k/uL Neutrophils % 78 % Lymphocytes % 15 % Monocytes % 5 % Eosinophils % 1 % Basophils % 0 % Neutrophils # 7.8 H (1.3-7.7) k/uL Lymphocytes # 1.5 (1.0-4.8) k/uL Monocytes # 0.5 (0-1.0) k/uL Eosinophils # 0.1 (0-0.7) k/uL Basophils # 0.0 (0-0.2) k/uL Sodium 136 L (137-145) mmol/L Potassium 4.1 (3.5-5.1) mmol/L Chloride 102 (98-107) mmol/L Carbon Dioxide 26 (22-30) mmol/L Anion Gap 8 mmol/L BUN 10 (7-17) mg/dL Creatinine 0.50 L (0.52-1.04) mg/dL Est GFR (CKD-EPI)AfAm >90 (>60 ml/min/1.73 sqM) Est GFR (CKD-EPI)NonAf >90 (>60 ml/min/1.73 sqM) Glucose 90 (74-99) mg/dL Calcium 9.2 (8.4-10.2) mg/dL - Radiology Data Radiology results: report reviewed Soft tissue infiltration changes of left mandibular and submandibular region. No well-formed fluid collection or abscess. No definite dental cavity or periodontal abscess. Correlate clinically. Etiology uncertain. Disposition Clinical Impression: Left facial swelling, Facial cellulitis Disposition: HOME SELF-CARE Condition: Good Instructions (If sedation given, give patient instructions): Sialoadenitis (ED) Additional Instructions: Please use medication as discussed. Use throat lozenges to promote salivation. Please follow up with family doctor if symptoms have not improved over the next two days. Please return to the emergency room if your symptoms increase or worsen or for any other concerns. Prescriptions: Clindamycin HCl 300 mg PO Q6H #40 cap HYDROcodone/APAP 5-325MG [[place] 5-325] 1 tab PO Q6HR PRN 3 Days #12 tab PRN Reason: Pain Is patient prescribed a controlled substance at d/c from ED?: Yes If prescribed controlled substance>3 days was MAPS reviewed?: Prescribed <3 Days If opioid is for acute pain is fill amount 7 days or less?: Yes If Rx opioid, was Start Talking consent form obtained?: Yes Referrals: Cory Morris Jr, DO [Primary Care Provider] - 1-2 days Time of Disposition: 14:56
--- NOTE | 2020-04-06 14:37 | CT ---
EXAMINATION TYPE: CT soft tissue neck w con DATE OF EXAM: 04/06/2020 HISTORY: Left cheek swelling and pain. COMPARISON: NONE CT DLP: 219.3 mGycm. Automated Exposure Control for Dose Reduction was Utilized. TECHNIQUE: CT scan of the neck is performed with IV Contrast, patient injected with 100 mL of Isovue 300, axial images are obtained, coronal and sagittal reformatted images are reviewed. FINDINGS: Airway: No gross abnormality seen. Parotid/submandibular glands: No gross abnormality seen. Carotid/Vascular Structures: No suspicious abnormalities seen. Osseous Structures: Scoliotic curvature may be positional. Other: There is [id number] asymmetric soft tissue swelling and fat stranding over the left aleksander ible with some prominent but subcentimeter left submandibular lymph node. There are cavitary fillings involving the molar teeth bilaterally of the maxilla and mandible. No definitive new suspicious luce ncy or cavity identified. No definitive bony destruction seen. No well-formed fluid collection or abs cess. Mild to moderate lobulated mucosal thickening inferior left maxillary sinus and anterior left e thmoid sinuses. IMPRESSION: Soft tissue inflammatory changes left mandibular and submandibular region. No well-formed fluid collection or abscess. No definitive dental cavity or periodontal abscess. Correlate clinicall y. Etiology uncertain.
[2020-04-06] MEDS ORDERED: DEXAMETHASONE SOD PHOSPHATE 10 MG/ML 1 ML VIAL IV STA (14:57)
[2020-04-06] MEDS ORDERED: CLINDAMYCIN 150 MG CAP PO STA (14:58)
[2020-04-06 16:02] VITALS: BP 118/83; PULSE 82; RESP 18
== END 2020-04-06 16:01 | disposition home or self-care (01) ==
LOC: EC 12:11
DX: L03.211 Cellulitis of face (principal); Z87.891 Personal history of nicotine dependence; Z88.8 Allergy status to other drugs, medicaments and biological substances
CPT/HCPCS: 36415; 80048; 85025; 87040; 70491; 99284; 96374; 96375; 96361; J1100; J0696; Q9967

== ENCOUNTER 2020-11-13 23:38 | Emergency (ER) | payer OTHER ==
[2020-11-14 00:37] VITALS: TEMP 98.3
[2020-11-14 01:52] LABS: Basophils # (A) 0.1 k/uL (0-0.2); Basophils % (A) 1 %; Eosinophils # (A) 0.2 k/uL (0-0.7); Eosinophils % (A) 3 %; HCT 39.3 % (34.0-46.0); HGB 13.6 gm/dL (11.4-16.0); Lymphocytes # (A) 2.5 k/uL (1.0-4.8); Lymphocytes % (A) 32 %; MCH 31.3 pg (25.0-35.0); MCHC 34.7 g/dL (31.0-37.0); MCV 90.2 fL (80.0-100.0); Mean Platelet Volume 8.3; Monocytes # (A) 0.4 k/uL (0-1.0); Monocytes % (A) 5 %; Neutrophils # (A) 4.5 k/uL (1.3-7.7); Neutrophils % (A) 58 %; Platelet Count 243 k/uL (150-450); RBC 4.36 m/uL (3.80-5.40); RDW 12.1 % (11.5-15.5); WBC 7.7 k/uL (3.8-10.6)
[2020-11-14 02:12] LABS: ALT 6 U/L (4-34); AST 19 U/L (14-36); African American GFR (CKD) >90 (>60 ml/min/1.73 sqM); Albumin 4.8 g/dL (3.5-5.0); Alkaline Phosphatase 50 U/L (38-126); Amylase 60 U/L (30-110); Anion Gap 10 mmol/L; Blood Urea Nitrogen 12 mg/dL (7-17); Calcium 9.7 mg/dL (8.4-10.2); Carbon Dioxide 26 mmol/L (22-30); Chloride 102 mmol/L (98-107); Glucose 89 mg/dL (74-99); Lipase 136 U/L (23-300); Non-African American GFR(CKD) >90 (>60 ml/min/1.73 sqM); Potassium 4.1 mmol/L (3.5-5.1); Sodium 138 mmol/L (137-145); Total Bilirubin 0.2 mg/dL (0.2-1.3); Total Protein 7.9 g/dL (6.3-8.2)
[2020-11-14 02:27] LABS: Appearance,Urine Clear (Clear); Bilirubin,Urine Negative (Negative); Blood,Urine Negative (Negative); Color,Urine Yellow; Glucose,Urine (UA) Negative (Negative); Ketones,Urine Negative (Negative); Leukocyte Esterase,Urine Negative (Negative); Nitrite,Urine Negative (Negative); Protein,Urine Trace (Negative); Specific Gravity,Urine 1.026 (1.001-1.035); Urobilinogen,Urine <2.0 mg/dL (<2.0)
--- NOTE | 2020-11-14 02:43 | XR ---
EXAM: XR Abdomen, 1 View CLINICAL HISTORY: abdominal pain TECHNIQUE: Frontal view of the abdomen/pelvis. COMPARISON: No relevant prior studies available. FINDINGS: Gastrointestinal tract: Moderate amount of stool in the colon . No dilation. Bones/joints: Unremarkable. IMPRESSION: Moderate amount of stool in the colon
[2020-11-14] MEDS ORDERED: SODIUM CHLORIDE 0.9% 1,000 ML IV STA (04:19)
[2020-11-14] MEDS ORDERED: MORPHINE SULFATE 4 MG/ML SYRINGE IVP STA (04:19)
--- NOTE | 2020-11-14 04:19 | ED ---
Abdominal Pain HPI - General Source: patient Mode of arrival: ambulatory Limitations: no limitations <Zi Sandhu - Last Filed: 11/14/20 07:07> <Daniel Cobb - Last Filed: 11/14/20 09:41> - General Chief Complaint: Abdominal Pain Stated Complaint: Abdominal Pain Time Seen by Provider: 11/14/20 03:47 - Related Data Home Medications Medication Instructions Recorded Confirmed Acetaminophen-Codeine 300-30mg 1 tab PO TID PRN 04/06/20 04/06/20 [Tylenol w/codeine #3] Previous Rx's Medication Instructions Recorded Penicillin V Potassium [Pen Vee K] 500 mg PO Q6H 10 Days #40 tablet 04/04/20 Clindamycin HCl 300 mg PO Q6H #40 cap 04/06/20 HYDROcodone/APAP 5-325MG [[place] 1 tab PO Q6HR PRN 3 Days #12 tab 04/06/20 5-325] HYDROcodone/APAP 5-325MG [[place] 1 tab PO Q6HR PRN 3 Days #12 tab 11/14/20 5-325] Allergies Allergy/AdvReac Type Severity Reaction Status Date / Time hydromorphone HCl AdvReac Nausea & Verified 11/14/20 00:37 [From Dilaudid] Vomiting Review of Systems ROS Other: All systems not noted in ROS Statement are negative. <Zi Sandhu - Last Filed: 11/14/20 07:07> ROS Other: All systems not noted in ROS Statement are negative. <Daniel Cobb - Last Filed: 11/14/20 09:41> ROS Statement: Those systems with pertinent positive or pertinent negative responses have been documented in the HPI. Past Medical History Past Medical History: No Reported History History of Any Multi-Drug Resistant Organisms: None Reported Past Surgical History: No Surgical Hx Reported Past Psychological History: No Psychological Hx Reported Smoking Status: Current every day smoker Past Alcohol Use History: None Reported Past Drug Use History: None Reported <Zi Sandhu - Last Filed: 11/14/20 07:07> General Exam Limitations: no limitations <Zi Sandhu - Last Filed: 11/14/20 07:07> Course Vital Signs 11/14/20 00:34 Temperature 98.3 F Pulse Rate 71 Respiratory 16 Rate Blood Pressure 106/75 O2 Sat by Pulse 99 Oximetry Medical Decision Making - Lab Data Result diagrams: 11/14/20 00:45 11/14/20 00:45 <Zi Sandhu - Last Filed: 11/14/20 07:07> - Lab Data Result diagrams: 11/14/20 00:45 11/14/20 00:45 <Daniel Cobb - Last Filed: 11/14/20 09:41> - Medical Decision Making Patient signed out to me by previous shift physician Dr. Sandhu. Patient is a 25-year-old female she has no significant past medical history. Presents to the emergency department for right lower abdominal pain. Patient had workup initiated by Dr. Morris. CBC, metabolic panel and urinalysis is unremarkable. Patient did have a CT of abdomen and pelvis that shows a large cystic lesions of the left adnexa likely a large ovarian cyst. Patient is not . Plan at sign out was to follow-up with pending transvaginal ultrasound. According to previous shift physician patient's well-appearing without any findings at bedside to suggest ovarian torsion. Patient was evaluated at bedside is stable-appearing she did not appear to be any significant amount of acute distress. Transvaginal ultrasound shows large left ovarian cyst with a smaller complex right ovarian cyst. There does appear to be no evidence to suggest ovarian torsion. Case is discussed with Dr. Nath. Came to the emergency department evaluated patient. Dr. Nath discussed options with patient. 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 Patient given return precautions. Patient given by mouth analgesics prescription patient understands that she has a high predisposition of having ovarian torsion. She states she understands the plan. (Daniel Cobb) - Lab Data Lab Results 11/14/20 11/14/20 11/14/20 Range/Units 00:45 00:45 00:45 WBC 7.7 (3.8-10.6) k/uL RBC 4.36 (3.80-5.40) m/uL Hgb 13.6 (11.4-16.0) gm/dL Hct 39.3 (34.0-46.0) % MCV 90.2 (80.0-100.0) fL MCH 31.3 (25.0-35.0) pg MCHC 34.7 (31.0-37.0) g/dL RDW 12.1 (11.5-15.5) % Plt Count 243 (150-450) k/uL MPV 8.3 Neutrophils % 58 % Lymphocytes % 32 % Monocytes % 5 % Eosinophils % 3 % Basophils % 1 % Neutrophils # 4.5 (1.3-7.7) k/uL Lymphocytes # 2.5 (1.0-4.8) k/uL Monocytes # 0.4 (0-1.0) k/uL Eosinophils # 0.2 (0-0.7) k/uL Basophils # 0.1 (0-0.2) k/uL Sodium 138 (137-145) mmol/L Potassium 4.1 (3.5-5.1) mmol/L Chloride 102 (98-107) mmol/L Carbon Dioxide 26 (22-30) mmol/L Anion Gap 10 mmol/L BUN 12 (7-17) mg/dL Creatinine 0.67 (0.52-1.04) mg/dL Est GFR (CKD-EPI)AfAm >90 (>60 ml/min/1.73 sqM) Est GFR (CKD-EPI)NonAf >90 (>60 ml/min/1.73 sqM) Glucose 89 (74-99) mg/dL Plasma Lactic Acid German 0.9 (0.7-2.0) mmol/L Calcium 9.7 (8.4-10.2) mg/dL Total Bilirubin 0.2 (0.2-1.3) mg/dL AST 19 (14-36) U/L ALT 6 (4-34) U/L Alkaline Phosphatase 50 (38-126) U/L Total Protein 7.9 (6.3-8.2) g/dL Albumin 4.8 (3.5-5.0) g/dL Amylase 60 (30-110) U/L Lipase 136 (23-300) U/L Urine Color Urine Appearance (Clear) Urine pH (5.0-8.0) Ur Specific [place] (1.001-1.035) Urine Protein (Negative) Urine Glucose (UA) (Negative) Urine Ketones (Negative) Urine Blood (Negative) Urine Nitrite (Negative) Urine Bilirubin (Negative) Urine Urobilinogen (<2.0) mg/dL Ur Leukocyte Esterase (Negative) Urine HCG, Qual (Not Detectd) 11/14/20 11/14/20 Range/Units 01:01 01:01 WBC (3.8-10.6) k/uL RBC (3.80-5.40) m/uL Hgb (11.4-16.0) gm/dL Hct (34.0-46.0) % MCV (80.0-100.0) fL MCH (25.0-35.0) pg MCHC (31.0-37.0) g/dL RDW (11.5-15.5) % Plt Count (150-450) k/uL MPV Neutrophils % % Lymphocytes % % Monocytes % % Eosinophils % % Basophils % % Neutrophils # (1.3-7.7) k/uL Lymphocytes # (1.0-4.8) k/uL Monocytes # (0-1.0) k/uL Eosinophils # (0-0.7) k/uL Basophils # (0-0.2) k/uL Sodium (137-145) mmol/L Potassium (3.5-5.1) mmol/L Chloride (98-107) mmol/L Carbon Dioxide (22-30) mmol/L Anion Gap mmol/L BUN (7-17) mg/dL Creatinine (0.52-1.04) mg/dL Est GFR (CKD-EPI)AfAm (>60 ml/min/1.73 sqM) Est GFR (CKD-EPI)NonAf (>60 ml/min/1.73 sqM) Glucose (74-99) mg/dL Plasma Lactic Acid German (0.7-2.0) mmol/L Calcium (8.4-10.2) mg/dL Total Bilirubin (0.2-1.3) mg/dL AST (14-36) U/L ALT (4-34) U/L Alkaline Phosphatase (38-126) U/L Total Protein (6.3-8.2) g/dL Albumin (3.5-5.0) g/dL Amylase (30-110) U/L Lipase (23-300) U/L Urine Color Yellow Urine Appearance Clear (Clear) Urine pH 6.0 (5.0-8.0) Ur Specific [place] 1.026 (1.001-1.035) Urine Protein Trace H (Negative) Urine Glucose (UA) Negative (Negative) Urine Ketones Negative (Negative) Urine Blood Negative (Negative) Urine Nitrite Negative (Negative) Urine Bilirubin Negative (Negative) Urine Urobilinogen <2.0 (<2.0) mg/dL Ur Leukocyte Esterase Negative (Negative) Urine HCG, Qual Not Detected (Not Detectd) Disposition Is patient prescribed a controlled substance at d/c from ED?: No <Zi Sandhu - Last Filed: 11/14/20 07:07> Time of Disposition: 09:41 <Daniel Cobb - Last Filed: 11/14/20 09:41> Clinical Impression: Abdominal pain, Ovarian cyst Disposition: HOME SELF-CARE Condition: Good Instructions (If sedation given, give patient instructions): Ovarian Cyst (ED) Prescriptions: HYDROcodone/APAP 5-325MG [[place] 5-325] 1 tab PO Q6HR PRN 3 Days #12 tab PRN Reason: Severe Pain Referrals: Cory Morris Jr, DO [Primary Care Provider] - 1-2 days Carlie Major DO [Doctor of Osteopathic Medicine] - 1 Week
--- NOTE | 2020-11-14 06:39 | CT ---
EXAM: CT Abdomen and Pelvis With Intravenous Contrast CLINICAL HISTORY: left sided pain that traveling since last night, when pressure is applied he thinks he feels a cust. Concerned about torsion. He may order US next. TECHNIQUE: Axial computed tomography images of the abdomen and pelvis with intravenous contrast. CTDI is 14.27 mGy and DLP is 668.5 mGy-cm. This CT exam was performed using one or more of the following dose reduction techniques: automated exposure control, adjustment of the mA and/or kV according to patient size, and/or use of iterative reconstruction technique. Coronal and sagittal reformatted images were created and reviewed. COMPARISON: No relevant prior studies available. FINDINGS: Lung bases: Unremarkable. No mass. No consolidation. ABDOMEN: Liver: Unremarkable. No mass. Gallbladder and bile ducts: Unremarkable. No calcified stones. No ductal dilation. Pancreas: Unremarkable. No mass. No ductal dilation. Spleen: Unremarkable. No splenomegaly. Adrenals: Unremarkable. No mass. Kidneys and ureters: Unremarkable. No solid mass. No hydronephrosis. Stomach and bowel: Unremarkable. No obstruction. No mucosal thickening. PELVIS: Appendix: Normal appendix. Bladder: Unremarkable. No mass. Reproductive: 8 x 4.6 x 5.3 cm cystic lesion of the left adnexa, surrounded by rim of fluid or soft tissue measuring about 32 Hounsfield units posteriorly. Right adnexal cysts, measuring about 4.2 cm and 2.3 cm. ABDOMEN and PELVIS: Intraperitoneal space: Unremarkable. No free air. No significant fluid collection. Bones/joints: Moderate degenerative disc disease at L5-S1 with about 50% loss in height and anterior disc protrusion No acute fracture. No dislocation. Soft tissues: Unremarkable. Vasculature: Unremarkable. No abdominal aortic aneurysm. Lymph nodes: Unremarkable. No enlarged lymph nodes. IMPRESSION: 1. 8 x 4.6 x 5.3 cm cystic lesion of the left adnexa, likely a large ovarian cyst. Less likely differential includes tubo-ovarian abscess, pyosalpinx, hydrosalpinx, and cystic neoplasm of the ovary. Surrounding rim of fluid or soft tissue posteriorly may represent ovarian parenchyma. Hemorrhage cannot be excluded.. 2. likely right ovarian cysts.
--- NOTE | 2020-11-14 07:50 | US ---
EXAMINATION TYPE: US transvaginal DATE OF EXAM: 11/14/2020 COMPARISON: CT CLINICAL HISTORY: torsion. pelvic pain during the night; TECHNIQUE: Transvaginal (TV). EC patient for Transvaginal sonographic images were medically necessa ry to better assess the following anatomy: ovaries Date of LMP: 11/01/2020 EXAM MEASUREMENTS: Uterus: 9.1 x 7.2 x 4.8 cm Endometrial Stripe: 1.2 cm Right Ovary: 6.6 x 5.0 x 4.4 cm Left Ovary: 8.2 x 6.7 x 4.7 cm 1. Uterus: Anteverted ; couple of Nabothian cysts in cervix with larger cluster = 0.8 x 0.7 x 0.4cm 2. Endometrium: thickness wnl for day 14 LMP 3. Right Ovary: enlarged right ovary with enlarged complex cyst = 3.9 x 4.3 x 3.9cm 4. Left Ovary: enlarged left ovary with enlarged ovarian cyst = 8.1 x 5.7 x 4.3cm Spectral, color and waveform Doppler imaging shows good arterial and venous flow within the ovaries ; there is no evidence for ovarian torsion. 5. Bilateral Adnexa: wnl 6. Posterior cul-de-sac: small amount of free fluid here = 1.9 x 0.6 x 1.2cm IMPRESSION: 1. Large left ovarian cyst with a smaller complex right ovarian cyst.
--- NOTE | 2020-11-14 09:34 | P.OBCN ---
History of Present Illness Consult date: 11/14/20 Requesting physician: Daniel Cobb Reason for consult: ovarian cyst Chief complaint: Ovarian cysts History of present illness: Angelique is seen and evaluated in the emergency room. She is in currently no acute distress. She relates that last night she had severe onset of pelvic pain. Initially she thought the pain was a pulled muscle on she had almost crawl to the bathroom and then was brought to the emergency room at approximately 11:00 last night. Ultrasound CAT scan were done showing 2 large ovarian masses one approximately 8 cm at other approximate 4 cm the left side is larger than the right. In discussing with radiology is difficult to identify what the source of the ovarian cysts is, i.e. hemorrhagic cyst versus endometrioma versus even potentially infectious which is less likely based on her normal white count and no fever. It is difficult to say how long the cysts been there, but in reviewing ultrasound from 2011, it appears she had bilateral ovarian cystic complex that time indicating this may be endometriomas. She and I had a lengthy discussion on what options we have including but not limited to potentially taking her surgery today for a diagnostic laparoscopy possible open with possible removal of both ovaries depending on what we find. She relates that she is not interested in going to surgery today as her pain is tolerable and is in such a new onset that she would like to see her safety leader for care. We did discuss admitting her overnight in evaluating the symptomatology, but she also prefer to be discharged home with a few pain pills to get her through the next couple of days and to take her off work until she can see Dr. Major on Friday. She is aware should she have new onset of severe pain she may need to return immediately to the emergency room and that potentially an emergency surgery may be necessary if torsion ensues. She is aware that torsion is a distinct possibility based on the size of her ovaries but certainly waiting on surgery and getting as much information as possible prior to making a decision on her surgery would be beneficial to her as well as her fertility since she does still want to have more children and she is only 25 years old. She is a 2 para 1 with a spontaneous miscarriage last March. Past medical history none X Past surgical history none ALLERGIES none Social history significant for tobacco abuse approximately 3 cigarettes 5 cigarettes per day Family history of sister with what she believes was cervical cancer On physical exam heart is regular, lungs are clear, extremities are without pain. Abdomen is essentially soft with bowel sounds. Pelvic exam is done and cultures are obtained. There is fullness in bilateral adnexa but she didn't tolerate the exam very well. Assessment ovarian cysts/masses Plan I have scheduled appointment with Dr. Major. 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 Return with recurrence of symptoms. Past Medical History Past Medical History: No Reported History History of Any Multi-Drug Resistant Organisms: None Reported Past Surgical History: No Surgical Hx Reported Past Psychological History: No Psychological Hx Reported Smoking Status: Current every day smoker Past Alcohol Use History: None Reported Past Drug Use History: None Reported Medications and Allergies Home Medications Medication Instructions Recorded Confirmed Type Penicillin V Potassium [Pen Vee K] 500 mg PO Q6H 10 Days #40 tablet 04/04/20 04/06/20 Rx Acetaminophen-Codeine 300-30mg 1 tab PO TID PRN 04/06/20 04/06/20 History [Tylenol w/codeine #3] Clindamycin HCl 300 mg PO Q6H #40 cap 04/06/20 Rx HYDROcodone/APAP 5-325MG [[place] 1 tab PO Q6HR PRN 3 Days #12 tab 04/06/20 Rx 5-325] Allergies Allergy/AdvReac Type Severity Reaction Status Date / Time hydromorphone HCl AdvReac Nausea & Verified 11/14/20 00:37 [From Dilaudid] Vomiting Exam Osteopathic Statement: *. No significant issues noted on an osteopathic structural exam other than those noted in the History and Physical/Consult. Vital Signs Temp Pulse Resp BP Pulse Ox 11/14/20 00:34 98.3 F 71 16 106/75 99 Intake and Output 11/13/20 11/14/20 11/14/20 22:59 06:59 14:59 Other: Weight 62.142 kg Results Result Diagrams: 11/14/20 00:45 11/14/20 00:45 Abnormal Lab Results - Last 24 Hours (Table) 11/14/20 Range/Units 01:01 Urine Protein Trace H (Negative)
[2020-11-14 10:23] VITALS: BP 124/64; PULSE 74; RESP 18
[2020-11-15 16:38] LABS: C. trachomatis,PCR Negative (Neg,Equiv); Chlamydia trachomatis Source Vagina; N. gonorrhoeae,PCR Negative (Neg,Equiv); Neisseria Source Vagina
== END 2020-11-14 10:23 | disposition home or self-care (01) ==
LOC: EC 23:38
DX: N83.202 Unspecified ovarian cyst, left side (principal); N83.201 Unspecified ovarian cyst, right side; F17.200 Nicotine dependence, unspecified, uncomplicated; Z88.5 Allergy status to narcotic agent
CPT/HCPCS: 36415; 74018; 74177; 76830; 80053; 81003; 81025; 82150; 83605; 83690; 85025; 86304; 87491; 87591; 93975; 96361; 96374; 99285

== ENCOUNTER 2020-11-16 18:59 | Observation (INO) | payer OTHER ==
[2020-11-16] MEDS ORDERED: SODIUM CHLORIDE 0.9% 1,000 ML IV STA (20:42)
[2020-11-16] MEDS ORDERED: MORPHINE SULFATE 4 MG/ML SYRINGE IV STA (20:42)
[2020-11-16] MEDS ORDERED: ONDANSETRON 4 MG/2 ML VIAL IVP STA (20:42)
[2020-11-16 21:20] LABS: Basophils % (A) 1 %; Eosinophils # (A) 0.2 k/uL (0-0.7); Eosinophils % (A) 3 %; HCT 35.3 % (34.0-46.0); HGB 12.6 gm/dL (11.4-16.0); Lymphocytes # (A) 1.5 k/uL (1.0-4.8); Lymphocytes % (A) 24 %; MCH 31.8 pg (25.0-35.0); MCHC 35.7 g/dL (31.0-37.0); MCV 89.2 fL (80.0-100.0); Mean Platelet Volume 8.2; Monocytes # (A) 0.4 k/uL (0-1.0); Monocytes % (A) 6 %; Neutrophils # (A) 4.3 k/uL (1.3-7.7); Neutrophils % (A) 66 %; Platelet Count 185 k/uL (150-450); RBC 3.95 m/uL (3.80-5.40); RDW 11.9 % (11.5-15.5); WBC 6.4 k/uL (3.8-10.6)
[2020-11-16 21:24] LABS: Appearance,Urine Clear (Clear); Bilirubin,Urine Negative (Negative); Blood,Urine Negative (Negative); Color,Urine Light Yellow; Glucose,Urine (UA) Negative (Negative); Ketones,Urine Negative (Negative); Leukocyte Esterase,Urine Small (Negative); Nitrite,Urine Negative (Negative); Protein,Urine Negative (Negative); RBC,Urine 1 /hpf (0-5); Specific Gravity,Urine 1.004 (1.001-1.035); Squamous Epithelial Cell,Urine 1 /hpf (0-4); Urobilinogen,Urine <2.0 mg/dL (<2.0); WBC,Urine 1 /hpf (0-5)
[2020-11-16 21:34] LABS: AST 21 U/L (14-36); African American GFR (CKD) >90 (>60 ml/min/1.73 sqM); Albumin 4.3 g/dL (3.5-5.0); Alkaline Phosphatase 49 U/L (38-126); Blood Urea Nitrogen 12 mg/dL (7-17); Carbon Dioxide 21 mmol/L (22-30); Chloride 104 mmol/L (98-107); Glucose 94 mg/dL (74-99); Non-African American GFR(CKD) >90 (>60 ml/min/1.73 sqM); Total Bilirubin 0.3 mg/dL (0.2-1.3); Total Protein 7.3 g/dL (6.3-8.2)
[2020-11-16 21:35] LABS: ALT 6 U/L (4-34); Anion Gap 8 mmol/L; Calcium 9.3 mg/dL (8.4-10.2); Lipase 89 U/L (23-300); Potassium 3.8 mmol/L (3.5-5.1); Sodium 133 mmol/L (137-145)
--- NOTE | 2020-11-16 22:02 | ED ---
Abdominal Pain HPI - General Chief Complaint: Abdominal Pain Stated Complaint: ovarian cysts revisit/pain Time Seen by Provider: 11/16/20 20:01 Source: patient Mode of arrival: ambulatory Limitations: no limitations - History of Present Illness Initial Comments: 25-year-old female patient presents to the emergency department today for evaluation of pelvic pain. States that she was seen a few days ago and diagnosed with a large ovarian cyst. States that she was offered admission, but decided to go home with pain medication to follow up with her OBGYN. States that tonight the pain worsened and the pain medication is not helping. She reports pain to t he low mid pelvic area, the pain radiates to her vagina and rectum. Denies abnormal vaginal discharge or bleeding. Denies fever or chills. Denies any urinary symptoms. Patient denies any recent rash, cough, shortness of breath, chest pain, nausea, vomiting, diarrhea, constipation, back pain, numbness, tingling, dizziness, weakness, hematuria, dysuria, urinary urgency, urinary frequency, headache, visual changes, or any other complaints. - Related Data Home Medications Medication Instructions Recorded Confirmed Acetaminophen-Codeine 300-30mg 1 tab PO TID PRN 04/06/20 04/06/20 [Tylenol w/codeine #3] Previous Rx's Medication Instructions Recorded Penicillin V Potassium [Pen Vee K] 500 mg PO Q6H 10 Days #40 tablet 04/04/20 Clindamycin HCl 300 mg PO Q6H #40 cap 04/06/20 HYDROcodone/APAP 5-325MG [[place] 1 tab PO Q6HR PRN 3 Days #12 tab 04/06/20 5-325] HYDROcodone/APAP 5-325MG [[place] 1 tab PO Q6HR PRN 3 Days #12 tab 11/14/20 5-325] Allergies Allergy/AdvReac Type Severity Reaction Status Date / Time hydromorphone HCl AdvReac Nausea & Verified 11/16/20 19:14 [From Dilaudid] Vomiting Review of Systems ROS Statement: Those systems with pertinent positive or pertinent negative responses have been documented in the HPI. ROS Other: All systems not noted in ROS Statement are negative. Past Medical History Past Medical History: No Reported History History of Any Multi-Drug Resistant Organisms: None Reported Past Surgical History: No Surgical Hx Reported Past Psychological History: No Psychological Hx Reported Smoking Status: Current every day smoker Past Alcohol Use History: None Reported Past Drug Use History: None Reported General Exam Limitations: no limitations General appearance: alert, in no apparent distress, other (This is a well- developed, well-nourished adult female patient in mild distress related to pain. Vital signs upon presentation are temperature 98.7F, pulse 82, respirations 18, blood pressure 124/86, pulse ox 100% on room air.) Eye exam: Present: normal appearance, PERRL, EOMI. Absent: scleral icterus, conjunctival injection, periorbital swelling ENT exam: Present: normal exam, normal oropharynx, mucous membranes moist Respiratory exam: Present: normal lung sounds bilaterally. Absent: respiratory distress, wheezes, rales, rhonchi, stridor Cardiovascular Exam: Present: regular rate, normal rhythm, normal heart sounds. Absent: systolic murmur, diastolic murmur, rubs, gallop, clicks GI/Abdominal exam: Present: soft, tenderness (Suprapubic), normal bowel sounds. Absent: distended, guarding, rebound, rigid Neurological exam: Present: alert, oriented X3, CN II-XII intact Psychiatric exam: Present: normal affect, normal mood Skin exam: Present: warm, dry, intact, normal color. Absent: rash Course Vital Signs 11/16/20 11/16/20 19:11 22:51 Temperature 98.7 F Pulse Rate 82 82 Respiratory 18 16 Rate Blood Pressure 124/86 117/79 O2 Sat by Pulse 100 90 L Oximetry Medical Decision Making - Medical Decision Making 25-year-old female patient presents to the emergency department today for evaluation of increased pelvic pain. She was diagnosed with ovarian cyst 3 days ago offered admission possible surgery but declined and went home to try to manage with pain medication and outpatient. Physical examination did reveal suprapubic tenderness. Labs reviewed and are unremarkable. test negative. Repeat ultrasound today which showed no evidence for ovarian torsion, no changes from the previous ultrasound. I did call and discuss the case with Dr. Castillo who is on-call for Dr. Major. She agreed to admission and will be coming in to evaluate the patient for possible surgical procedure. Patient is to remain nothing by mouth. Discussed the case with my attending Dr. Sanon. - Lab Data Result diagrams: 11/16/20 21:05 04/08/21 21:05 Lab Results 11/16/20 11/16/20 11/16/20 Range/Units 21:05 21:05 21:05 WBC 6.4 (3.8-10.6) k/uL RBC 3.95 (3.80-5.40) m/uL Hgb 12.6 (11.4-16.0) gm/dL Hct 35.3 (34.0-46.0) % MCV 89.2 (80.0-100.0) fL MCH 31.8 (25.0-35.0) pg MCHC 35.7 (31.0-37.0) g/dL RDW 11.9 (11.5-15.5) % Plt Count 185 (150-450) k/uL MPV 8.2 Neutrophils % 66 % Lymphocytes % 24 % Monocytes % 6 % Eosinophils % 3 % Basophils % 1 % Neutrophils # 4.3 (1.3-7.7) k/uL Lymphocytes # 1.5 (1.0-4.8) k/uL Monocytes # 0.4 (0-1.0) k/uL Eosinophils # 0.2 (0-0.7) k/uL Basophils # 0.0 (0-0.2) k/uL Sodium (137-145) mmol/L Potassium (3.5-5.1) mmol/L Chloride (98-107) mmol/L Carbon Dioxide (22-30) mmol/L Anion Gap mmol/L BUN (7-17) mg/dL Creatinine (0.52-1.04) mg/dL Est GFR (CKD-EPI)AfAm (>60 ml/min/1.73 sqM) Est GFR (CKD-EPI)NonAf (>60 ml/min/1.73 sqM) Glucose (74-99) mg/dL Plasma Lactic Acid German (0.7-2.0) mmol/L Calcium (8.4-10.2) mg/dL Total Bilirubin (0.2-1.3) mg/dL AST (14-36) U/L ALT (4-34) U/L Alkaline Phosphatase (38-126) U/L Total Protein (6.3-8.2) g/dL Albumin (3.5-5.0) g/dL Lipase (23-300) U/L Urine Color Light Yellow Urine Appearance Clear (Clear) Urine pH 6.0 (5.0-8.0) Ur Specific [place] 1.004 (1.001-1.035) Urine Protein Negative (Negative) Urine Glucose (UA) Negative (Negative) Urine Ketones Negative (Negative) Urine Blood Negative (Negative) Urine Nitrite Negative (Negative) Urine Bilirubin Negative (Negative) Urine Urobilinogen <2.0 (<2.0) mg/dL Ur Leukocyte Esterase Small H (Negative) Urine RBC 1 (0-5) /hpf Urine WBC 1 (0-5) /hpf Ur Squamous Epith Cells 1 (0-4) /hpf Urine HCG, Qual Not Detected (Not Detectd) 11/16/20 11/16/20 Range/Units 21:05 21:05 WBC (3.8-10.6) k/uL RBC (3.80-5.40) m/uL Hgb (11.4-16.0) gm/dL Hct (34.0-46.0) % MCV (80.0-100.0) fL MCH (25.0-35.0) pg MCHC (31.0-37.0) g/dL RDW (11.5-15.5) % Plt Count (150-450) k/uL MPV Neutrophils % % Lymphocytes % % Monocytes % % Eosinophils % % Basophils % % Neutrophils # (1.3-7.7) k/uL Lymphocytes # (1.0-4.8) k/uL Monocytes # (0-1.0) k/uL Eosinophils # (0-0.7) k/uL Basophils # (0-0.2) k/uL Sodium 133 L (137-145) mmol/L Potassium 3.8 (3.5-5.1) mmol/L Chloride 104 (98-107) mmol/L Carbon Dioxide 21 L (22-30) mmol/L Anion Gap 8 mmol/L BUN 12 (7-17) mg/dL Creatinine 0.48 L (0.52-1.04) mg/dL Est GFR (CKD-EPI)AfAm >90 (>60 ml/min/1.73 sqM) Est GFR (CKD-EPI)NonAf >90 (>60 ml/min/1.73 sqM) Glucose 94 (74-99) mg/dL Plasma Lactic Acid German 0.6 L (0.7-2.0) mmol/L Calcium 9.3 (8.4-10.2) mg/dL Total Bilirubin 0.3 (0.2-1.3) mg/dL AST 21 (14-36) U/L ALT 6 (4-34) U/L Alkaline Phosphatase 49 (38-126) U/L Total Protein 7.3 (6.3-8.2) g/dL Albumin 4.3 (3.5-5.0) g/dL Lipase 89 (23-300) U/L Urine Color Urine Appearance (Clear) Urine pH (5.0-8.0) Ur Specific [place]man (1.001-1.035) Urine Protein (Negative) Urine Glucose (UA) (Negative) Urine Ketones (Negative) Urine Blood (Negative) Urine Nitrite (Negative) Urine Bilirubin (Negative) Urine Urobilinogen (<2.0) mg/dL Ur Leukocyte Esterase (Negative) Urine RBC (0-5) /hpf Urine WBC (0-5) /hpf Ur Squamous Epith Cells (0-4) /hpf Urine HCG, Qual (Not Detectd) - Radiology Data Radiology results: report reviewed, image reviewed Transvaginal ultrasound was obtained. Report is reviewed in its entirety. Impression by Dr. Kinney shows free fluid in the cul-de-sac. Bilateral co mplex ovarian cyst. No evidence of ovarian torsion. No significant change compared to recent exam. No endometrial mass. Normal uterus. Disposition Clinical Impression: Ovarian cyst, Pelvic pain Disposition: ADMITTED IP TO THIS [facility] Condition: Serious Referrals: Cory oMrris Jr, [Primary Care Provider] - 1-2 days Decision to Admit Reason: Admit from EC Decision Date: 11/16/20 Decision Time: 23:02
--- NOTE | 2020-11-16 22:06 | US ---
EXAMINATION TYPE: US transvaginal DATE OF EXAM: 11/16/2020 COMPARISON: US CLINICAL HISTORY: Known Lg Ovarian cyst; Increased pain. Pain x 4 days. Hx miscarriage. . Known large ovarian cyst. TECHNIQUE: Transvaginal (TV). Date of LMP: 11/01/2020 EXAM MEASUREMENTS: Uterus: 9.6 x 6.5 x 4.7 cm Endometrial Stripe: 0.70 cm Right Ovary: 5.4 x 4.4 x 3.8 cm Left Ovary: 8.2 x 5.2 x 4.9 cm 1. Uterus: Anteverted Subcentimeter hypoechoic areas seen in cervix. 2. Endometrium: Appears wnl 3. Right Ovary: Appears enlarged. Complex area seen: 3.7 x 3.6 x 3.5 cm. 4. Left Ovary: Appears enlarged. Complex area seen: 7.1 x 5.2 x 4.4 cm. Spectral, color and waveform doppler imaging shows arterial and venous flow within the ovaries. 5. Bilateral Adnexa: 6. Posterior cul-de-sac: Fluid seen: 3.6 x 1.5 x 1.2 cm. IMPRESSION: There is free fluid in the cul-de-sac. There are bilateral complex ovarian cysts. No evidence of ovar landry torsion. No significant change compared to recent exam. No endometrial mass. Normal uterus.
[2020-11-16] MEDS ORDERED: MORPHINE SULFATE 4 MG/ML SYRINGE IVP STA (22:28)
[2020-11-16] MEDS ORDERED: ONDANSETRON 4 MG/2 ML VIAL IVP PRN (22:55)
[2020-11-16] MEDS ORDERED: NALOXONE 0.4 MG/ML 1 ML VIAL IV PRN (22:55)
[2020-11-16] MEDS ORDERED: MORPHINE SULFATE 4 MG/ML SYRINGE IV PRN (22:55)
[2020-11-16] MEDS ORDERED: SODIUM CHLORIDE 0.9% 1,000 ML IV SCH (23:00)
--- NOTE | 2020-11-17 00:46 | P.HPOB ---
History of Present Illness H&P Date: 11/17/20 Chief Complaint: Pelvic pain This is a 25-year-old female 2 para 1011 who presents with severe left lower quadrant pelvic pain that began approximately 4 days ago when she rolled over in bed. She stated that she had a sudden pain in her side and at first thought it was a muscle but it became worse and worse. She did go to the emergency room on Friday night and was found to have bilateral ovarian cysts the largest of which was 8 cm on the left ovary. She was seen by Dr. Nath at that time and was offered pain medication versus surgery. She decided to take the pain medication and was scheduled to see her regular SUPERVISING PRODUCER, Dr. Major on Friday. She stated that she took the [place] a few times at home but it did not seem to help at all and she did not want to keep taking it since it didn't help. She stated that a heating pad helps a little bit but she was unable to do her daily activities due to the pain. She has received morphine in the ER and states that it helps take the edge off her pain. In looking back at previous ultrasounds, it does appear that she has had cysts since at least 2011. It was also noted that she had a left ovarian cyst measuring 5.3 cm in 2014 when she was in her first trimester. Currently ultrasound shows a left ovarian complex cyst measuring 7.1 x 5.2 x 4.4 right complex ovarian cyst measuring 3.7 x 3.6 x 3.5 cm. Her CA-125 was drawn 2 days ago and was 7.2 which is normal. Obstetrical history: 011. History of 1 vaginal delivery at term and 1 miscarriage. Gynecologic history: She is currently with the same partner for 9 years. She denies any history of sexually transmitted diseases. She is not using anything for control and has been attempting . Social history: She is single. Review of Systems Constitutional: Denies chills, Denies fever Eyes: denies blurred vision, denies pain Ears, nose, mouth and throat: Denies headache, Denies sore throat Cardiovascular: Denies chest pain, Denies shortness of breath Respiratory: Denies cough Gastrointestinal: Reports abdominal pain, Denies nausea, Denies vomiting Genitourinary: Reports pelvic pain, Denies , Denies urgency, Denies urin petey frequency Musculoskeletal: Reports low back pain Integumentary: Denies pruritus, Denies rash Neurological: Denies numbness, Denies weakness Psychiatric: Denies anxiety, Denies depression Endocrine: Denies fatigue, Denies weight change Past Medical History Past Medical History: No Reported History History of Any Multi-Drug Resistant Organisms: None Reported Past Surgical History: No Surgical Hx Reported Past Psychological History: No Psychological Hx Reported Smoking Status: Current every day smoker (She quit smoking a few days ago. Previously she has been smoking approximately 1 pack a day.) Past Alcohol Use History: None Reported Past Drug Use History: None Reported Medications and Allergies Home Medications Medication Instructions Recorded Confirmed Type HYDROcodone/APAP 5-325MG [[place] 1 tab PO Q6HR PRN 3 Days #12 tab 11/14/20 11/16/20 Rx 5-325] Allergies Allergy/AdvReac Type Severity Reaction Status Date / Time hydromorphone HCl AdvReac Nausea & Verified 11/16/20 23:27 [From Dilaudid] Vomiting Exam Osteopathic Statement: *. No significant issues noted on an osteopathic structural exam other than those noted in the History and Physical/Consult. Vital Signs Temp Pulse Resp BP Pulse Ox 11/16/20 22:51 82 16 117/79 90 L 11/16/20 19:11 98.7 F 82 18 124/86 100 Intake and Output 11/16/20 11/16/20 11/17/20 14:59 22:59 06:59 Other: Weight 62.596 kg Gen.: Well-developed well-nourished female in mild pain HEENT: Within normal limits Heart: Regular rate and rhythm Lungs: Clear to auscultation bilaterally Abdomen: Diffuse tenderness but more so in the left lower quadrant with some guarding to palpation Pelvic exam: Deferred to the OR Extremities: Negative Homans Results Result Diagrams: 11/16/20 21:05 11/16/20 21:05 Abnormal Lab Results - Last 24 Hours (Table) 11/16/20 11/16/20 11/16/20 Range/Units 21:05 21:05 21:05 Sodium 133 L (137-145) mmol/L Carbon Dioxide 21 L (22-30) mmol/L Creatinine 0.48 L (0.52-1.04) mg/dL Plasma Lactic Acid German 0.6 L (0.7-2.0) mmol/L Ur Leukocyte Esterase Small H (Negative) Assessment and Plan (1) Complex cyst of both ovaries Current Visit: Yes Status: Acute Code(s): N83.291 - OTHER OVARIAN CYST, RIGHT SIDE; N83.292 - OTHER OVARIAN CYST, LEFT SIDE SNOMED Code(s): 44428610784820222 (2) Pelvic pain Current Visit: Yes Status: Acute Code(s): R10.2 - PELVIC AND PERINEAL PAIN SNOMED Code(s): 66715251 Plan: Plan is to proceed with laparoscopy, possible laparotomy, possible drainage of o varian cysts, possible salpingo-oophorectomy, possible ablation of endometriosis. The above-noted procedure was discussed in detail with the patient including risks and benefits and possibility of infertility was also discussed if oophorectomy is necessary. Anesthesia has been called and she is scheduled for surgery at approximately 5 AM this morning.
[2020-11-17] MEDS ORDERED: NEOSTIGMINE 1 MG/ML 10 ML VIAL ONE (05:00)
[2020-11-17] MEDS ORDERED: ROCURONIUM 10 MG/ML (5 ML VIAL) IV ONE (05:00)
[2020-11-17] MEDS ORDERED: DEXAMETHASONE SOD PHOSPHATE 4 MG/ML 1 ML VIAL ONE (05:00)
[2020-11-17] MEDS ORDERED: SUCCINYLCHOLINE CHLORIDE 100 MG/5 ML SYR IV ONE (05:00)
[2020-11-17] MEDS ORDERED: KETOROLAC 15 MG/ML 1 ML VIAL ONE (05:00)
[2020-11-17] MEDS ORDERED: PROPOFOL 10 MG/ML 20 ML VIAL IV ONE (05:00)
[2020-11-17] MEDS ORDERED: GLYCOPYRROLATE 0.2 MG/ML 2 ML VIAL ONE (05:00)
[2020-11-17] MEDS ORDERED: fentaNYL (PF) 50 MCG/ML 2 ML AMP ONE (05:00)
[2020-11-17] MEDS ORDERED: ONDANSETRON 4 MG/2 ML VIAL ONE (05:00)
[2020-11-17] MEDS ORDERED: MIDAZOLAM 2 MG/2 ML VIAL ONE (05:00)
[2020-11-17] MEDS ORDERED: SODIUM CHLORIDE 0.9% 600 ML IV ONE (05:05)
[2020-11-17] MEDS ORDERED: BUPIVACAINE (PF) 0.25% 30 ML VIAL SQ ONE ×2 (05:31→05:52)
--- NOTE | 2020-11-17 06:06 | P.OP ---
Date of Procedure: 11/17/20 Preoperative Diagnosis: Pelvic pain Bilateral complex ovarian cysts Postoperative Diagnosis: Pelvic pain Large simple left ovarian cysts Small complex right ovarian cyst Procedure(s) Performed: Laparoscopy Drainage of bilateral ovarian cysts Anesthesia: TREVOR Surgeon: Seema Castillo Estimated Blood Loss (ml): 10 Pathology: none sent Condition: stable Disposition: floor Indications for Procedure: This is a 25-year-old female 2 para 1011 who presents with severe left lower quadrant pelvic pain that began approximately 4 days ago when she rolled over in bed. She stated that she had a sudden pain in her side and at first thought it was a muscle but it became worse and worse. She did go to the emergency room on Friday night and was found to have bilateral ovarian cysts the largest of which was 8 cm on the left ovary. She was seen by Dr. Nath at that time and was offered pain medication versus surgery. She decided to take the pain medication and was scheduled to see her regular TREASURY ASSOCIATE, Dr. Major on Friday. She stated that she took the [place] a few times at home but it did not seem to help at all and she did not want to keep taking it since it didn't help. She stated that a heating pad helps a little bit but she was unable to do her daily activities due to the pain. She has received morphine in the ER and states that it helps take the edge off her pain. In looking back at previous ultrasounds, it does appear that she has had cysts since at least 2011. It was also noted that she had a left ovarian cyst measuring 5.3 cm in 2014 when she was in her first trimester. Currently ultrasound shows a left ovarian complex cyst measuring 7.1 x 5.2 x 4.4 right complex ovarian cyst measuring 3.7 x 3.6 x 3.5 cm. Her CA-125 was drawn 2 days ago and was 7.2 which is normal. Operative Findings: Large simple-appearing left ovarian cyst was noted in the pelvic cul-de-sac. A smaller complex right ovarian cyst with some hemorrhage was noted on the right ovary. No evidence of endometriosis or adhesions were noted. The gallbladder was visualized and appears normal. Description of Procedure: The patient is taken to the operating room where she is placed in the dorsal lithotomy position. She is prepped and draped in the normal sterile fashion. Her bladder is drained with a catheter and then removed. Examination is performed under anesthesia. Uterus sounded be anteverted with no palpable adnexal masses noted. Next a bivalve speculum was placed in the patient's vagina. A double-tooth tenaculum was used to grasp the anterior lip of the cervix. The uterus is sounded to 9 cm. The kroner uterine manipulator was attempted to be inserted but was too tight and therefore Hegar dilators were used to dilate the cervix slightly until the manipulator could be passed. The manipulator was inserted and the balloon was inflated. Single-tooth tenaculum was removed. Gloves were changed. Attention was turned to the abdomen. A topical was placed above the umbilicus for retraction. A small stab incision was made infraumbilically and a 5 mm disposable trocar was inserted under direct visualization into the peritoneal cavity. Once intraperitoneal placement was confirmed pneumoperitoneum was achieved with CO2 gas. Next a small stab incision was made suprapubically and a 5 mm disposable bladeless trocar was inserted under direct visualization. The pelvic contents were inspected and pictures were taken. Next a aspirating needle with a 60 mL syringe was used to puncture into the left ovarian cyst and approximately 60+ cc of straw-colored fluid was drained and discarded. These cysts completely resolved and the ovary shrunk considerably. The same procedure was carried out on the right ovary. The right ovary was stabbed with the aspirating needle and approximately 10-15 mL of a slightly bloody colored fluid was removed. The cyst did go down quite a bit. No active bleeding was noted. There was a small amount of bloody fluid in the cul-de-sac. This was removed with the suction electroless plater and obese irrigation was carried out. No active bleeding was noted. Pictures are taken. The inferior trocar is then removed under direct visualization. Pneumoperitoneum is released and then the upper trocar is removed. Incision sites are closed with 4-0 undyed Vicryl suture in a subcuticular fashion. The lower incision was also closed with an interrupted stitch for hemostasis. Next the skin incisions are injected with quarter percent Marcaine. Approximately 8 mL are used. Next the kroner uterine manipulator is removed. Inspection of the cervix shows no active bleeding. All instrument's are removed from the vagina. All sponge and needle counts are correct. The patient is taken to recovery room in stable condition.
[2020-11-17 06:14] VITALS: TEMP 98.1
[2020-11-17] MEDS ORDERED: SODIUM CHLORIDE 0.9% 1,000 ML IV ONE (06:39)
[2020-11-17 07:13] VITALS: BP 104/70; PULSE 70; RESP 17
--- NOTE | 2020-11-29 08:55 | P.DS ---
Providers Date of admission: 11/16/20 23:03 Expected date of discharge: 11/17/20 Attending physician: Seema Castillo Primary care physician: Cory Morris - Discharge Diagnosis(es) (1) Complex cyst of both ovaries Status: Acute (2) Pelvic pain Status: Acute Hospital Course: This is a 25-year-old female who presented to the emergency room with worsening pelvic pain and was diagnosed with a large cyst on her left ovary. She underwent laparoscopy with drainage of large left ovarian cyst on 11/17/2020. Postoperatively her pain was fairly well controlled and then she was discharged home shortly after surgery. She was given a prescription for [place] for pain control. She was advised to follow up in the office in approximately 2 weeks for a postoperative check. She was advised to call the office if she has any further questions or concerns prior to her appointment time. Procedures: Laparoscopy with drainage of large left ovarian cyst on 11/17/2020 Patient Condition at Discharge: Stable Plan - Discharge Summary New Discharge Prescriptions: Continue HYDROcodone/APAP 5-325MG [[place] 5-325] 1 tab PO Q6HR PRN 3 Days #12 tab PRN Reason: Severe Pain Discharge Medication List HYDROcodone/APAP 5-325MG [[place] 5-325] 1 tab PO Q6HR PRN 3 Days #12 tab 11/17/20 [Rx] Follow up Appointment(s)/Referral(s): Cory Morris Jr, DO [Primary Care Provider] - 1-2 days Seema Castillo DO [Doctor of Osteopathic Medicine] - 2 Weeks Carlie Major DO [Doctor of Osteopathic Medicine] - 11/20/20 Patient Instructions/Handouts: *Surgery [facility] - (Anesthesia) Discharge Instruc tions Outpatient Surgery, Ovarian Cyst Removal (DC) Activity/Diet/Wound Care/Special Instructions: Activity as tolerated. Diet as tolerated. May shower, but no tub baths for 1 week. No intercourse for 1 week. Discharge Disposition: HOME SELF-CARE
== END 2020-11-17 08:17 | disposition home or self-care (01) ==
LOC: EC 18:59 → 6NMEDSUR 23:03 → 4FBP 11-17 00:25
PROVIDERS: ADMIT Obstetrics & Gynecology; ATTEND Obstetrics & Gynecology
DX: N83.292 Other ovarian cyst, left side (principal); N83.291 Other ovarian cyst, right side; R10.2 Pelvic and perineal pain; F17.210 Nicotine dependence, cigarettes, uncomplicated; Z88.5 Allergy status to narcotic agent; Z20.822 Contact with and (suspected) exposure to COVID-19
CPT/HCPCS: 49322; 96376; 96361; 96374; 96375; 99285; 36415; 80053; 83605; 83690; 85025; 81001; 81025; 84702; 87635; 93975; 76830; G0378 ×2; J2250; J2270 ×2; J1100; J2710; J2405 ×2; J3010; J1885; J0330; J2704

== ENCOUNTER 2021-02-21 10:59 | Emergency (ER) | payer OTHER ==
[2021-02-21] MEDS ORDERED: IPRATROPIUM-ALBUTEROL 3 ML NEB INHALATION STA (11:42)
--- NOTE | 2021-02-21 12:19 | ED ---
URI HPI - General Chief Complaint: Upper Respiratory Infection Stated Complaint: cough, SOB, congestion Time Seen by Provider: 02/21/21 11:17 Source: patient Mode of arrival: ambulatory Limitations: no limitations - History of Present Illness Initial Comments: Patient is a 25-year-old female presenting to the emergency Department with complaints of a cough for the past week. She states sometimes it is productive, she feels like she is wheezing a little bit over the past couple days. She has been eating and drinking as normal, no fevers or chills, no abdominal pain, no nausea or vomiting. She states she feels like the cough has been getting worse so wanted to come in to be seen. Her daughter has the same sort of symptoms. She denies any concerns for Covid. She denies history of asthma, she denies being . She has no further complaints at this time. Upon arrival to the ER, her vitals are within normal limits. - Related Data Previous Rx's Medication Instructions Recorded Albuterol Inhaler [Ventolin Hfa 1 puff INHALATION RT-QID PRN #1 02/21/21 Inhaler] puff predniSONE 50 mg PO DAILY #5 tab 02/21/21 Allergies Allergy/AdvReac Type Severity Reaction Status Date / Time hydromorphone HCl AdvReac Nausea & Verified 02/21/21 12:52 [From Dilaudid] Vomiting Review of Systems ROS Statement: Those systems with pertinent positive or pertinent negative responses have been documented in the HPI. ROS Other: All systems not noted in ROS Statement are negative. Past Medical History Past Medical History: No Reported History History of Any Multi-Drug Resistant Organisms: None Reported Past Surgical History: No Surgical Hx Reported Additional Past Surgical History / Comment(s): Ovarian cyst Past Anesthesia/Blood Transfusion Reactions: No Reported Reaction Past Psychological History: No Psychological Hx Reported Smoking Status: Current every day smoker Past Alcohol Use History: None Reported Past Drug Use History: None Reported - Past Family History Sister(s) History Unknown: Yes Additional Family Medical History / Comment(s): ovarian cysts General Exam - General Exam Comments Initial Comments: GENERAL: Patient is well-developed and well-nourished. Patient is nontoxic and in no acute distress. HEAD: Atraumatic, normocephalic. EYES: Pupils equal round and reactive to light, extraocular movements intact, sclera anicteric, conjunctiva are normal. Eyelids were unremarkable. ENT: TMs normal, nares patent, oropharynx clear without exudates. Moist mucous membranes. NECK: Normal range of motion, supple without lymphadenopathy or JVD. LUNGS: Unlabored respirations. Scattered wheezes, some mild congestion, does clear some after coughing. HEART: Regular rate and rhythm without murmurs, rubs or gallops. ABDOMEN: Soft, nontender, normoactive bowel sounds. No guarding, no rebound. No masses appreciated. MUSCULOSKELETAL: Normal extremities with adequate strength and normal range of motion, no pitting or edema. No clubbing or cyanosis. NEUROLOGICAL: Patient is alert and oriented x 3. SKIN: Warm, Dry, normal turgor, no rashes or lesions noted. Limitations: no limitations Course Vital Signs 02/21/21 02/21/21 02/21/21 11:05 11:07 12:31 Temperature 98.5 F Pulse Rate 93 92 Respiratory 20 18 Rate Blood Pressure 108/65 O2 Sat by Pulse 95 Oximetry 02/21/21 12:41 Temperature Pulse Rate 92 Respiratory Rate Blood Pressure O2 Sat by Pulse Oximetry Medical Decision Making - Medical Decision Making Patient is a 25-year-old female here with a cough for one week. She feels it is getting worse. Her daughter has the same symptoms. No fevers, her vitals are stable. She has no concern for Covid. No history of asthma. Scattered wheezes on exam, some mild congestion but does clear after coughing. His x-ray shows no acute process. Patient was given a breathing treatment, does report some mild improvement in her symptoms. Patient will be treated for bronchitis, I'll give her the option for steroids and inhaler. She can follow-up with her family doctor symptoms persist. She is in agreement with this plan of care. Case discussed with Dr. Zhao. Disposition Clinical Impression: Bronchitis Disposition: HOME SELF-CARE Condition: Stable Instructions (If sedation given, give patient instructions): Acute Bronchitis (ED) Additional Instructions: Please return to the Emergency Department if symptoms worsen or any other concerns. Take steroids as prescribed, use inhaler as needed for cough, shortness of breath. Follow-up with your primary care physician if symptoms persist. Prescriptions: predniSONE 50 mg PO DAILY #5 tab Albuterol Inhaler [Ventolin Hfa Inhaler] 1 puff INHALATION RT-QID PRN #1 puff PRN Reason: Shortness Of Breath Is patient prescribed a controlled substance at d/c from ED?: No Referrals: Cory Morris Jr, [Primary Care Provider] - 1-2 days Time of Disposition: 13:05
--- NOTE | 2021-02-21 12:31 | XR ---
EXAMINATION TYPE: XR chest 2V DATE OF EXAM: 02/21/2021 COMPARISON: 02/26/2019 HISTORY: Cough congestion TECHNIQUE: Frontal and lateral views of the chest are obtained. FINDINGS: There is no focal air space opacity. No evidence for pneumothorax. No pleural effusion. The cardiac silhouette size is within normal limits. The osseous structures are grossly intact. IMPRESSION: 1. No acute cardiopulmonary process.
[2021-02-21 13:36] VITALS: BP 111/71; PULSE 74; RESP 17; TEMP 98.1
== END 2021-02-21 13:36 | disposition home or self-care (01) ==
LOC: EC 10:59
DX: J40 Bronchitis, not specified as acute or chronic (principal); F17.200 Nicotine dependence, unspecified, uncomplicated
CPT/HCPCS: 71046; 94640; 99284

== ENCOUNTER 2021-04-26 09:12 | Emergency (ER) | payer OTHER ==
[2021-04-26 09:22] VITALS: RESP 18
--- NOTE | 2021-04-26 09:46 | ED ---
General Adult HPI - General Chief complaint: ENT Stated complaint: Sore throat, congestion Time Seen by Provider: 04/26/21 09:17 Source: patient, RN notes reviewed Mode of arrival: ambulatory Limitations: no limitations - History of Present Illness Initial comments: 25-year-old female presents emergency Department chief complaint of fever cough congestion sore throat. Patient states symptoms started last couple days. She is a daily smoker. Denies any significant shortness breath no chest pain denies any GI symptoms including diarrhea, constipation no dysuria no hematuria denies any chance offers no other complaints. - Related Data Home Medications Medication Instructions Recorded Confirmed No Known Home Medications 04/26/21 04/26/21 Allergies Allergy/AdvReac Type Severity Reaction Status Date / Time hydromorphone HCl AdvReac Nausea & Verified 04/26/21 10:08 [From Dilaudid] Vomiting Review of Systems ROS Statement: Those systems with pertinent positive or pertinent negative responses have been documented in the HPI. ROS Other: All systems not noted in ROS Statement are negative. Past Medical History Past Medical History: No Reported History History of Any Multi-Drug Resistant Organisms: None Reported Past Surgical History: No Surgical Hx Reported Additional Past Surgical History / Comment(s): Ovarian cyst Past Anesthesia/Blood Transfusion Reactions: No Reported Reaction Past Psychological History: No Psychological Hx Reported Smoking Status: Current every day smoker Past Alcohol Use History: None Reported Past Drug Use History: None Reported - Past Family History Sister(s) History Unknown: Yes Additional Family Medical History / Comment(s): ovarian cysts General Exam Limitations: no limitations General appearance: alert, in no apparent distress Head exam: Present: atraumatic, normocephalic, normal inspection Eye exam: Present: normal appearance, PERRL, EOMI. Absent: scleral icterus, conjunctival injection, periorbital swelling ENT exam: Present: normal exam, normal oropharynx, mucous membranes moist Neck exam: Present: normal inspection, full ROM. Absent: tenderness, meni ngismus, lymphadenopathy Respiratory exam: Present: wheezes (Faint inspiratory). Absent: normal lung sounds bilaterally, respiratory distress, rales, rhonchi, stridor Cardiovascular Exam: Present: regular rate, normal rhythm, normal heart sounds. Absent: systolic murmur, diastolic murmur, rubs, gallop, clicks GI/Abdominal exam: Present: soft, normal bowel sounds. Absent: distended, tenderness, guarding, rebound, rigid Course Vital Signs 04/26/21 09:18 Temperature 98.1 F Pulse Rate 94 Respiratory 18 Rate Blood Pressure 107/74 O2 Sat by Pulse 99 Oximetry Medical Decision Making - Medical Decision Making I counseled the patient for smoking cessation for greater than 3 minutes. Patient has negative covid 19 test. Patient has a viral first for infection discharged in stable condition return parameters discussed. - Lab Data Lab Results 04/26/21 Range/Units 09:53 Coronavirus (PCR) Not Detected (Not Detectd) Disposition Clinical Impression: Viral upper respiratory infection Disposition: HOME SELF-CARE Condition: Stable Instructions (If sedation given, give patient instructions): Upper Respiratory Infection (ED) Additional Instructions: Please return to the Emergency Department if symptoms worsen or any other concerns. Is patient prescribed a controlled substance at d/c from ED?: No Referrals: Cory Morris Jr, DO [Primary Care Provider] - 1-2 days Time of Disposition: 10:49
[2021-04-26 11:04] VITALS: BP 102/82; PULSE 88; TEMP 98.2
== END 2021-04-26 11:00 | disposition home or self-care (01) ==
LOC: EC 09:12
DX: J06.9 Acute upper respiratory infection, unspecified (principal); F17.200 Nicotine dependence, unspecified, uncomplicated; Z20.822 Contact with and (suspected) exposure to COVID-19; Z88.5 Allergy status to narcotic agent
CPT/HCPCS: 87635; 99283

== ENCOUNTER 2021-04-30 13:24 | Emergency (ER) | payer OTHER ==
[2021-04-30 14:29] VITALS: BP 110/80; PULSE 99; RESP 18; TEMP 97.3
--- NOTE | 2021-04-30 14:29 | ED ---
URI HPI - General Source: patient, RN notes reviewed Mode of arrival: ambulatory Limitations: no limitations <Delonte Guzman - Last Filed: 04/30/21 14:29> <Brittney Raymond - Last Filed: 04/30/21 17:12> - General Chief Complaint: Upper Respiratory Infection Stated Complaint: cough Time Seen by Provider: 04/30/21 13:45 - History of Present Illness Initial Comments: This a 25-year-old female presents emergency Department chief complaint of cough congestion. Patient was probably seen had a negative COVID-19 test. Patient is a daily smoker. Patient states her cough is nonproductive she does have some nasal congestion denies ear pains sore throat recent fever. (Delonte Guzman) - Related Data Home Medications Medication Instructions Recorded Confirmed No Known Home Medications 04/26/21 04/26/21 Allergies Allergy/AdvReac Type Severity Reaction Status Date / Time hydromorphone HCl AdvReac Nausea & Verified 04/30/21 14:27 [From Dilaudid] Vomiting Review of Systems ROS Other: All systems not noted in ROS Statement are negative. <Delonte Guzman - Last Filed: 04/30/21 14:29> ROS Other: All systems not noted in ROS Statement are negative. <Brittney Raymond - Last Filed: 04/30/21 17:12> ROS Statement: Those systems with pertinent positive or pertinent negative responses have been documented in the HPI. Past Medical History Past Medical History: No Reported History History of Any Multi-Drug Resistant Organisms: None Reported Past Surgical History: No Surgical Hx Reported Additional Past Surgical History / Comment(s): Ovarian cyst Past Anesthesia/Blood Transfusion Reactions: No Reported Reaction Past Psychological History: No Psychological Hx Reported Smoking Status: Current every day smoker Past Alcohol Use History: None Reported Past Drug Use History: None Reported - Past Family History Sister(s) History Unknown: Yes Additional Family Medical History / Comment(s): ovarian cysts <Delonte Guzman - Last Filed: 04/30/21 14:29> General Exam Limitations: no limitations <Delonte Guzman - Last Filed: 04/30/21 14:29> Course Vital Signs 04/30/21 14:27 Temperature 97.3 F L Pulse Rate 99 Respiratory 18 Rate Blood Pressure 110/80 O2 Sat by Pulse 98 Oximetry Medical Decision Making <Brittney Raymond - Last Filed: 04/30/21 17:12> - Medical Decision Making Patient left AMA before results. (Brittney Raymond) Disposition <Delonte Guzman - Last Filed: 04/30/21 14:29> <Brittney Raymond - Last Filed: 04/30/21 17:12> Clinical Impression: Cough Disposition: Left Against Medical Advice Referrals: Cory Morris Jr, [Primary Care Provider] - 1-2 days
--- NOTE | 2021-04-30 14:52 | XR ---
EXAMINATION TYPE: XR chest 2V DATE OF EXAM: 04/30/2021 COMPARISON: Chest x-ray 02/21/2021 HISTORY: Cough TECHNIQUE: Frontal and lateral views of the chest are obtained. FINDINGS: There is no focal air space opacity, pleural effusion, or pneumothorax seen. The cardiac silhouette size is within normal limits. The osseous structures are intact, there is a spinal curva ture. There is overlying artifact. Bronchial wall thickening is noted. IMPRESSION: Correlate for bronchitis, reactive airways disease. Follow-up as indicated.
== END 2021-04-30 17:15 | disposition left against medical advice (07) ==
LOC: EC 13:24
DX: R05 Cough (principal); R09.81 Nasal congestion; F17.200 Nicotine dependence, unspecified, uncomplicated
CPT/HCPCS: 71046; 99283